=== PATIENT | female | born 1950 | race Caucasian/White ===

== ENCOUNTER 2024-04-08 10:52 | Outpatient (AMB) | payer MEDICARE, SELFPAY ==
--- NOTE | 2024-04-08 11:08 | MHC.OFFVIS ---
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 The patient describes her pain as sharp in nature. She did undergo left knee arthroscopic surgery by Dr. Farris in the past. She got fairly good relief from that surgery initially. Her pain has gotten worse over the last 6 months in spite of continued non operative treatments. She has failed the last 3 months of conservative treatment which have included a home exercise program. Topical creams, Tylenol and anti-inflammatory medicines. She has had cortisone injections in the past which gave her no relief. She wishes to hold off on further surgery if at all possible. At this point her left knee pain is interfering with her activities of daily living and her ability to sleep well through the night. Allergies No Known Allergies Allergy (Verified 04/08/24 11:11) Medication List - Last Reconciled 04/08/24 by Leon Preston MD alprazolam 0.5 mg PO BID PRN apixaban (Eliquis) 5 mg PO BID atorvastatin 20 mg PO DAILY bupropion HCl 75 mg PO QAM cyclobenzaprine 10 mg PO DAILY PRN fluoxetine 60 mg PO QAM fluticasone propionate 50 mcg/actuation sprays intranasal lisinopril 5 mg PO DAILY meclizine 25 mg PO TID PRN metoprolol succinate ER 25 mg PO DAILY [facility] Surgical History (Updated 04/08/24 @ 11:12 by MARKUS Serrano) Hx of left knee surgery Physical Exam Vital Signs: BMI result Body Mass Index 26.3 Const Other: Well-nourished well-developed very friendly female awake alert and oriented x3 in no acute distress Extrem Other: Bilateral lower extremity examination shows good capillary refill, no skin lesions noted, normal sensation light touch Left knee examination shows a minimal effusion, palpable crepitus with range of motion, pain with range of motion, range of motion from -3 degrees to 115 degrees, negative Criselda's test, no instability Results Reviewed Results Reviewed: Standing full weight-bearing x-rays of the patient's left knee taken elsewhere show moderate diffuse joint space narrowing, subchondral sclerosis, no acute bony abnormalities MRI of the patient's left knee taken on 03/11/2024 shows moderate diffuse degenerative changes, no evidence of meniscus tearing, no acute bony abnormalities Assessment & Plan Assessment & Plan (1) Osteoarthritis of left knee: Code(s): M17.12 - Unilateral primary osteoarthritis, left knee Category: Medical Plan Ms. Artis presents with left knee pain due to osteoarthritis. I had a lengthy discussion with the patient regarding the treatment options. She wishes hold off on further surgery for as long as possible. I agree with this plan. I will see whether or not the patient's insurance company will cover a viscosupplementation injection. I will see her back once the injection is available. Feel free to call me at any time should questions regarding her orthopedic management arise. I spent 20 minutes in reviewing the patient's records and imaging studies, seeing the patient and documenting in the medical record. Coding Level of Care Code New Pt Level 3 (50608) Complex EM visit Add On G2211 Diagnoses Osteoarthritis of left knee M17.12
[2024-04-08 11:10] VITALS: BMI 26.3
== END 2024-04-08 11:37 | disposition home or self-care (01) ==
LOC: HO.HOS 10:53
PROVIDERS: PCP Internal Medicine; Visit Provider Orthopaedic Surgery
DX: M17.12 Unilateral primary osteoarthritis, left knee (principal)
CPT/HCPCS: 99203; G2211

== ENCOUNTER → 2024-04-08 10:52 | Outpatient (BNVA) | payer MEDICARE, SELFPAY | PROVIDERS: PCP Internal Medicine; Visit Provider Orthopaedic Surgery | DX: M17.12 Unilateral primary osteoarthritis, left knee (principal) | CPT/HCPCS: 99202 ==

== ENCOUNTER 2024-04-28 11:10 | Outpatient (AMB) | payer MEDICARE, SELFPAY ==
[2024-04-28 11:45] VITALS: BMI 26.3
--- NOTE | 2024-04-28 11:45 | MHC.OFFVIS ---
Vital Signs 04/28/24 11:45 Height 5 ft 8 in Weight 173 lb BMI 26.3 Intake Visit Reasons: Inj- Left Durolane Injection Intake Note: Magdalena is a 73 year old female who presents with complaints of progressively worsening left knee pain. The patient describes her pain as sharp in nature. She did undergo left knee arthroscopic surgery by Dr. Farris in the past. She got fairly good relief from that surgery initially. Her pain has gotten worse over the last 6 months in spite of continued non operative treatments. She has failed the last 3 months of conservative treatment which have included a home exercise program. Topical creams, Tylenol and anti-inflammatory medicines. She has had cortisone injections in the past which gave her no relief. She wishes to hold off on further surgery if at all possible. At this point her left knee pain is interfering with her activities of daily living and her ability to sleep well through the night. Allergies No Known Allergies Allergy (Verified 04/28/24 11:45) Medication List - Last Reconciled 04/28/24 by Leon Preston MD alprazolam 0.5 mg PO BID PRN apixaban (Eliquis) 5 mg PO BID atorvastatin 20 mg PO DAILY bupropion HCl 75 mg PO QAM cyclobenzaprine 10 mg PO DAILY PRN fluoxetine 60 mg PO QAM fluticasone propionate 50 mcg/actuation sprays intranasal lisinopril 5 mg PO DAILY meclizine 25 mg PO TID PRN metoprolol succinate ER 25 mg PO DAILY PFSH Surgical History Hx of left knee surgery Social History Alcohol intake: never Patient Tobacco Use Status: Never used Tobacco Current occupational status: employed and retired Physical Exam Vital Signs: BMI result Body Mass Index 26.3 Const Other: Well-nourished well-developed very friendly female awake alert and oriented x3 in no acute distress Extrem Other: Bilateral lower extremity examination shows good capillary refill, no skin lesions noted, normal sensation light touch Left knee examination shows a minimal effusion, palpable crepitus with range of motion, pain with range of motion, range of motion from -3 degrees to 115 degrees, no instability Office Procedures AMB Joint Injection/Aspiration Joint Injection/Aspiration Primary Site: left knee Prep: site was prepped using aseptic technique Injected: 60 mg of (Durolane viscosupplementation) and 1% plain lidocaine Procedure: The patient tolerated the procedure well Coding - Large joint Procedure code (CPT) selection complete Results Reviewed Results Reviewed: X-rays of the patient's left knee taken previously show joint space narrowing, subchondral sclerosis, no acute bony abnormalities Assessment & Plan Assessment & Plan (1) Osteoarthritis of left knee: Code(s): M17.12 - Unilateral primary osteoarthritis, left knee Category: Medical Plan Ms. Artis presents with left knee pain due to degenerative joint disease. I had a lengthy discussion with the patient regarding the treatment options. The risks and benefits of a left knee Durolane viscosupplementation injection were discussed at length with the patient. The patient wished to proceed. She tolerated the injection well. She will continue with her home exercise program. She will contact me prior to her follow-up appointment in 3 months should any questions or concerns arise. Feel free to call me at any time should questions regarding her orthopedic management arise. I spent 20 minutes in reviewing the patient's records and imaging studies, seeing the patient and documenting in the medical record. Orders: Orders AMB Joint Injection/Aspiration Today M17.12 - Unilateral primary osteoarthritis, left knee Coding Level of Care Code Est Pt Level 3 (61499) Complex EM visit Add On G2211 Diagnoses Osteoarthritis of left knee M17.12 CPT Codes Coding - 71341 Large joint: 10017 - Large joint ([id number])
== END 2024-04-28 12:18 | disposition home or self-care (01) ==
PROVIDERS: PCP Internal Medicine; Visit Provider Orthopaedic Surgery
DX: M17.12 Unilateral primary osteoarthritis, left knee (principal)
CPT/HCPCS: 20610; 99213

== ENCOUNTER → 2024-04-28 11:10 | Outpatient (BNVA) | payer MEDICARE, SELFPAY | PROVIDERS: PCP Internal Medicine; Visit Provider Orthopaedic Surgery | DX: M17.12 Unilateral primary osteoarthritis, left knee (principal) | CPT/HCPCS: 20610; 99212; J2003; J7318 ==

== ENCOUNTER 2024-07-30 09:34 | Outpatient (AMB) | payer MEDICARE, SELFPAY ==
--- NOTE | 2024-07-30 09:52 | A.OFFVIS_ITS ---
Intake Visit Reasons: Left knee pain Intake Note: Magdalena is a 74 year old female who presents with complaints of left knee pain. She describes her pain as sharp in nature. She has had cortisone injections in the past which gave her minimal relief. She has also had Durolane viscosupplementation injections which gave her good relief. She wishes to hold off on surgery if at all possible. She has done physical therapy exercises which aggravated her pain. She has also tried Tylenol which gives her minimal relief. She is not able to take anti-inflammatory medicines because she is on Eliquis. Allergies No Known Allergies Allergy (Verified 07/30/24 09:53) Medication List - Last Reconciled 07/31/24 by Leon Preston MD alprazolam 0.5 mg PO BID PRN apixaban (Eliquis) 5 mg PO BID atorvastatin 20 mg PO DAILY bupropion HCl 75 mg PO QAM cyclobenzaprine 10 mg PO DAILY PRN fluoxetine 60 mg PO QAM fluticasone propionate 50 mcg/actuation sprays intranasal lisinopril 5 mg PO DAILY meclizine 25 mg PO TID PRN metoprolol succinate ER 25 mg PO DAILY [facility] Surgical History Hx of left knee surgery Social History Alcohol intake: never Patient Tobacco Use Status: Never used Tobacco Current occupational status: employed and retired Physical Exam Const Other: Well-nourished well-developed very friendly female awake alert and oriented x3 in no acute distress Extrem Other: Bilateral lower extremity examination shows good capillary refill, no skin lesions noted, normal sensation light touch Left knee examination shows a minimal effusion, palpable crepitus with range of motion, pain with range of motion, range of motion from -3 degrees to 115 degrees, no instability Results Reviewed Results Reviewed: X-rays of the patient's left knee taken previously show joint space narrowing, subchondral sclerosis, no acute bony abnormalities Assessment & Plan Assessment & Plan (1) Left knee pain: Code(s): M25.562 - Pain in left knee (2) Osteoarthritis of left knee: Code(s): M17.12 - Unilateral primary osteoarthritis, left knee Category: Medical Plan Ms. Artis presents with progressively worsening left knee pain due to osteoarthritis. I had a lengthy discussion with the patient regarding the treatment options. She wishes to hold off on surgery if at all possible. I agree with this plan. She has not gotten good relief from cortisone injections in the past. She has gotten good relief from viscosupplementation injections. Thus, I will see if her insurance company will cover a another Durolane viscosupplementation injection. I will see her back once the injection is avail able. The patient will follow-up as instructed. Feel free to call me at any time should questions regarding her orthopedic management arise. I spent 20 minutes in reviewing the patient's records and imaging studies, seeing the patient and documenting in the medical record. Coding Level of Care Code Est Pt Level 3 (29540) Complex EM visit Add On G2211 Diagnoses Left knee pain M25.562 Osteoarthritis of left knee M17.12
--- OUTSIDE RECORDS SUMMARY | 2024-07-30 10:56 | XMS_ITS ---
Author Organization 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 Generated for aCrmen gardner/Seven/eTransmitting on:?07/30/2024 10:55 AM EST
--- OUTSIDE RECORDS SUMMARY | 2024-07-30 10:56 | XMS_ITS | Clinical Summary ---
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 Name Role Phone Facundo Hua MD Primary Care Provider Allergies No known active allergies Social History Tobacco Use Types Packs/Day Years Used Date Smoking Tobacco: Never Assessed Sex and Gender Information Value Date Recorded Sex Assigned at Not on file Gender Identity Not on file Sexual Orientation Not on file Last Filed Vital Signs Vital Sign Reading Time Taken Comments Blood Pressure 133/77 08/05/2021 12:35 PM EST Pulse 63 08/05/2021 12:35 PM EST Temperature 35.8 ??C (96.4 ??F) 08/05/2021 12:[address] Respiratory Rate 18 08/05/2021 12:35 PM EST Oxygen Saturation 98% 08/05/2021 12:35 PM EST Inhaled Oxygen Concentration - - Weight - - Height - - Body Mass Index - - Plan of Treatment Health Maintenance Due Date Last Done Comments Hepatitis C Virus Screening 1950 DTaP/Tdap/Td Vaccines (1 - Tdap) 1967 Mammogram 1988 Colonoscopy 1993 Pneumococcal Vaccines 50+ (1 of 1 - PCV) 1998 Zoster (Shingles) Vaccine (1 of 2) 1998 DXA Bone Density (Females,Ages 65 and older) 2013 RSV Vaccine 60 years and older and Patients (1 - 1-dose 75+ series) 2023 Influenza Vaccine 01/03/2024 03/08/2021, 03/05/2018, 03/29/2017 COVID-19 Vaccine ( - 2023-2 5 season) 2024 Hepatitis B Vaccines Aged Out No long er eligible based on patient's age to complete this topic Care Teams [employer] Weapons Sergeant Relationship Specialty Start Date End Date Facundo Hua MD [address] [place] [address] [place] [address] PCP - General Internal Medicine 07/18/21
--- OUTSIDE RECORDS SUMMARY | 2024-07-30 10:56 | XMS_ITS | Patient Health Record ---
Author Organization [facility] Address [address] [place] [address] Care Team Providers Care Yard Demurrage Clerk Name Role Phone Sarah BAKER, Jordyn Grigsby Primary Care Provider Unav ailable Ninfa Guzman Unavailable [phone] Reason For Referral No Information Plan Of Treatment No Information Insurance Providers Payer Name Payer Address Payer Phone Subscriber Number Group Number Insured Name Patient Relationship to Insured Coverage Start Date Coverage End Date [facility] 65 Medicare Preferred [address] [place] [address] [id number] Magdalena Artis Self - patient is the insured
--- OUTSIDE RECORDS SUMMARY | 2024-07-30 10:56 | XMS_ITS | Clinical Summary ---
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 Active cyanocobalamin (VITAMIN B-12) 250 mcg tablet Take by mouth 1 (one) time each day. Active ALPRAZolam (XANAX) 0.5 mg tablet Take 1 tablet (0.5 mg total) by mouth. Active zolpidem (AMBIEN) 10 mg tablet Take by mouth. Activ e magnesium gluconate (Mag-G) 27 mg magnesium (500 mg) tablet Take by mouth 1 (one) time each day. Active buPROPion (WELLBUTRIN) 75 mg tablet Take 1 tablet (75 mg total) by mouth 1 (one) time each day in the morning. 03/15/20 23 Active latanoprost (XALATAN) 0.005 % ophthalmic solution INSTILL 1 DROP INTO BOTH EYES NIGHTLY. REFRIGERATE UNTIL OPENED. DISCARD BOTTLE 6 WEEKS AFTER OPENING) 01/30/20 23 Active EPINEPHrine (EpiPen 2-Felix) 0.3 mg/0.3 mL injection Inject 0.3 mL (0.3 mg total) into the thigh. 12/07/19 24 Active FLUoxetine (PROzac) 20 mg capsule TAKE TWO CAPSULES BY MOUTH EVERY MORNING AND TAKE ONE CAPSULE BY MOUTH DAILY AT BEDTIME 12/04/19 24 Active apixaban (Eliquis) 5 mg tablet Take 1 tablet (5 mg total) by mouth 2 (two) times a day. 07/25/19 24 Active atorvastatin (LIPITOR) 10 mg tablet Take 1 tablet (10 mg total) by mouth 1 (one) time each day. 11/14/19 24 Active albuterol HFA (PROAIR HFA ; PROVENTIL HFA ; VENTOLIN HFA) 90 mcg/actuation inhaler Inhale 2 puffs by mouth every 6 (six) hours if needed for wheezing. Active fluticasone propionate (FLONASE) 50 mcg/actuation nasal spray Administer 1 spray into each nostril 1 (one) time each day. Shake gently. Before first use, prime pump. After use, clean tip and replace cap. Active metoprolol succinate (TOPROL-XL) 25 mg 24 hr tablet Take 1 tablet (25 mg total) by mouth 1 (one) time each day. Do not crush or chew. Active albuterol HFA (PROAIR HFA ; PROVENTIL HFA ; VENTOLIN HFA) 90 mcg/actuation inhalerIndicati ons:Chronic obstructive pulmonary disease, unspecified COPD type (CMS/HCC) Inhale 2 puffs by mouth every 6 (six) hours if needed for wheezing or shortness of breath. 1 each 11 05/04/20 24 025 Active cyclobenzaprine (FLEXERIL) 10 mg tabletIndicatio ns:Low back pain, unspecified back pain laterality, unspecified chronicity, unspecified whether sciatica present TAKE ONE TABLET BY MOUTH EVERY DAY NEEDED FOR MUSCLE SPASMS 60 tablet 1 05/13/20 24 Active lisinopriL (PRINIVIL,ZESTR IL) 5 mg tablet TAKE ONE TABLET BY MOUTH EVERY DAY 90 tablet 07/14/19 25 Active lisinopriL (PRINIVIL,ZESTR IL) 5 mg tablet TAKE ONE TABLET BY MOUTH EVERY DAY 90 tablet 04/09/20 24 025 Discontinued Active Problems Problem Noted Date Diagnosed Date Pericardial effusion 02/29/2024 Dizziness 04/17/2023 Overview (02/29/2024): Last Assessment & Plan: The patient has been reporting dizziness with position changes which has been going on for quite some time. She has not had any episodes of syncope. Orthostatics today in the office appeared to be positive. Given that the patient does not have any history of coronary artery disease, I will discontinue her isosorbide mononitrate 30 mg orally daily. This was started initially due to she was reporting episodes of chest discomfort and started on medical therapy prior to her cardiac testing. The patient will continue on her reduced dose of lisinopril at 5 mg orally daily. I have also instructed that she takes metoprolol 25 mg at night to see if this improves her symptoms. She recently completed a CBC which showed stable blood counts as well as stable electrolytes. She will continue to monitor her blood pressures, maintain adequate hydration, try compression stockings and notify me if her blood pressures remain elevated greater than 145/90. She prefers to communicate via the portal to update in regards to her symptoms. UTI due to Klebsiella species 03/26/2023 Overview (02/29/2024): Not sexually active, referred patient to urology March 2023 Prediabetes 12/01/2021 Chronic kidney disease (CKD) 12/01/2021 Fatigue 10/14/2021 Overview (02/29/2024): Last Assessment & Plan: Patient does complain of some fatigue today. Has a STOP-BANG score of 1 (for fatigue) is a low risk for DEBORAH. I did recommend we obtain some labs to evaluate her thyroid, look for anemia, evaluate her electrolytes. Given lab slips today. Recommended she call her PCP as well regarding her fatigue. Atrial flutter, paroxysmal 07/25/2021 Overview (02/29/2024): Last Assessment & Plan: Patient has a history of paroxysmal atrial flutter. She continues on rate control therapy with beta-bette. Her heart rate is well controlled today. She continues on anticoagulation therapy with Eliquis. She has a [id number] score of 3. She denies any excessive bruising or bleeding. She reports rare episodes of palpitations which lasts for a second at a time. We reviewed the possible triggers of palpitations including caffeine consumption, alcohol consumption, cigarette smoking, inadequate sleeping patterns, and stress. At this point, the patient will attempt to avoid the usual triggers. The patient will notify me if her symptoms increase in frequency or duration. Continue current therapies. Chest pain 07/07/2021 Overview (02/29/2024): Last Assessment & Plan: Patient with history of atypical chest discomfort. Her stress echocardiogram did not show any evidence of exercise-induced ischemia. Cardiac CT was obtained to rule out any significant obstructive coronary artery disease. She underwent cardiac CT on August 05, 2021 that showed a calcium score of 0 with no hemodynamically significant coronary artery disease. I discussed the results with him and advised that this indicates there is a low risk of a a heart attack in the future; however, this does not preclude her from having a cardiac event in the future. At this time, she will continue on her current medications. I explained this is not a single predictor of overall risk of heart disease. She will continue on her current medication regimen. I have reviewed with the patient the importance of a heart healthy lifestyle which includes eating a low-fat and low-salt diet, getting regular exercise, maintaining a healthy weight, not smoking, and following up with routine medical care. Cervical spondylosis 06/10/2021 Overview (02/29/2024): Last Assessment & Plan: Chandra is here for her 1 year follow-up after C6-7 ACDF with plating on 06/10/2020. She has some residual achiness in her neck upon awakening in the mornings, similar to her achy shoulders. This is much better than her preoperative neck pain and she is pleased from that standpoint. The neck pain gets better with movement and gentle stretching. On exam, her incision is well-healed, cervical rotation is 45 degrees bilaterally, strength is 5 out of 5 to conversational testing, gait is steady there are no myelopathic findings. Review of the AP/lateral and flexion/extension x-rays from today show the graft plate and screws to all be in good position. There is a small amount of subsidence but the graft appears to be fused anteriorly. There is no instability at any level. We discussed that she may progress to full fusion over the next 6 months to a year but this would not limit her activities. I offered a referral to physical therapy to improve her mobility and give her a home exercise program but she declined and will do this on her own. She is welcome to follow-up with us if there are any concerns in the future. Syncope 05/06/2021 Overview (02/29/2024): Last Assessment & Plan: The patient had an episode of syncope several months ago. She states that she suddenly collapsed while having a conversation with one of her neighbors. The patient did not seek any medical attention at that time. Echocardiogram done in February showed an LVEF of 50 to 55%, normal RV size and function, and trace MR. Holter monitor done in January did not show any arrhythmias but the patient did not have any significant symptoms while wearing the monitor. As such, will order a 30-day ambulatory echocardiographic monitor to rule out any underlying arrhythmias as a cause of her symptoms. Dyspnea 05/06/2021 Overview (02/29/2024): Last Assessment & Plan: The patient continues to endorse experiencing exertional shortness of breath. Will order a pulmunary function test to rule out any underlying pulmonary disease as the cause of her symptoms. Abnormal echocardiogram 05/02/2021 Hyperlipidemia 08/11/2016 Overview (02/29/2024): Last Assessment & Plan: Patient has a history of hyperlipidemia. She will continue her current dose of atorvastatin as prescribed. Patient was last fasting lipid panel completed October 2022 which showed adequate cholesterol control. I have reviewed with the patient the importance of a heart healthy lifestyle which includes eating a low-fat low-salt diet, getting regular exercise, maintaining a healthy weight, not smoking, and following up with routine medical care. RLS (restless legs syndrome) 12/15/2015 Anxiety 11/09/2015 Hip pain 04/27/2015 Overview (02/29/2024): Follows with [facility], had X ray, injection Depression 01/06/2010 Diverticulitis of colon without hemorrhage 08/19 Overview (02/29/2024): Incidental finding at colonoscopy 08/19/2009. Benign essential hypertension 09/29/2005 Overview (02/29/2024): Last Assessment & Plan: Patient's blood pressure is well controlled today. I will discontinue isosorbide mononitrate as outlined below. She will continue on lisinopril and metoprolol as prescribed. She will continue to monitor her blood pressures at home. Encounters Date Type Department Care Team Description 07/29/2024 Telephone [facility] [address] [place] [address] Facundo Hua MD 06/09/2024 9:30 AM EST Office Visit Adult Medicine [facility] [address] [place] [address] Jordyn Smith MD Vaginal discharge (Primary Dx); Dyspnea, unspecified type; History of pneumonia 05/07/2024 10:00 AM EST Ancillary Procedure [facility] [address] [place] [address] Pericardial effusion from Last 3 Months Immunizations Name Administration Dates Next Due Influenza trivalent, 0.5mL ( Fluzone High-dose) 65yo and older 03/18/2022,03/08/2021,03/24/2020,03/05 Influenza trivalent, with pr eservative (Fluzone; Afluria) 6mo and older 02/07/2023,03/29/2017 Pneumococcal conjugate 13 va lent (Prevnar 13, PCV13) 2mo and older 10/30/2017 Pneumococcal polysaccharide 23 valent (Pneumovax 23) 2yo and older 10/17/2022 RSV, bivalent, protein subun it RSVpreF, 0.5mL, Preservative Free (Arexvy) 60yo and older 02/07/2023 Td Tetanus diptheria (Tdvax) 7yo and older 06/10/2019 Tdap Tetanus diptheria acell ular pertussis (Boostrix; Adacel) 7yo and older 06/27/2007 Surgical History Surgery Date Site/Laterality Comments COLONOSCOPY 08/19/2009 PROCEDURE: NE COLONOSCOPY FLX DX W/COLLJ SPEC WHEN PFRMD; COMMENT: diverticulosis ESOPHAGOGASTRODUODENOSCOPY 06/04/2013 PROCEDURE: NE ESOPHAGOGASTRODUODENOSCOPY TRANSORAL DIAGNOSTIC; COMMENT: normal COLONOSCOPY 05/17/2022 PROCEDURE: HISTORICAL COLONOSCOPY; COMMENT: tubular adenoma and diverticulosis Medical History Medical History Date Comments Tobacco use disorder 11/26/2006 DX:Tobacco use disorder; COMMENT: quit 2006 Unspecified essential hypertension DX:Unspecified essential hypertension Diverticulosis of colon (wit hout mention of hemorrhage) 08/19/2009 DX:Diverticulosis of colon ( without mention of hemorrhage) Depression 01/06/2010 DX:Depression Hip pain 04/27/2015 DX:Hip pain; COM MENT: Follows with [facility], had X ray, injection Anxiety DX:Anxiety History of dysplastic nevus 08/15/2012 DX:H istory of dysplastic nevus; COMMENT: Dysplastic nevus 08/12 back (mild atypia) Cervical spondylosis 06/10/2021 DX:Cervical spondylosis Family History Medical History Relation Name Comments Hypertension Brother 1 Other: Hodgkin's lymphoma Brother 2 Heart attack Father at age 72, HTN, stroke, basal cell ca Hypertension Mother ESRD Hypertension Sister Breast cancer Neg Hx Relation Name Status Comments Brother 1 Brother 2 Father Mother Sister Social History Tobacco Use Types Packs/Day Years Used Date Smoking Tobacco: Former Cigarettes 0.5 30.3 0 10/30/1976 - 03/04/2007 Smokeless Tobacco: Former Tobacco Cessation:Counseling Given: Not Answered Alcohol Use Standard Drinks/Week Comments Yes 0 (1 standard drink = 0.6 oz pur e alcohol) Comments Unknown Sex and Gender Information Value Date Recorded Sex Assigned at Not on file Legal Sex Female 8:44 PM EST Gender Identity Not on file Sexual Orientation Not on file Obstetrics History Last Filed Vital Signs Vital Sign Reading Time Taken Comments Blood Pressure 131/82 06/09/2024 9:15 AM EST Pulse 72 06/09/2024 9:15 AM EST Temperature 36 ??C (96.8 ??F) 06/09/2024 9:15 AM EST Respiratory Rate 16 06/09/2024 9:15 AM EST Oxygen Saturation 99% 04/16/2024 4:11 PM EST Inhaled Oxygen Concentration - - Weight 81.2 kg (179 lb) 06/09/2024 9:15 AM EST Height 172.7 cm (5' 8 ) 06/09/2024 9:15 AM EST Body Mass Index 27.22 06/09/2024 9:15 AM EST Plan of Treatment Upcoming Encounters Date Type Department Care Team (Late st Contact Info) Description 08/11/2024 8:20 AM EDT Office Visit [facility] [address] [place] [address] Facundo Hua MD [address] [place] [address] [address] [place] [address] 10/21/2024 11:45 AM EDT Office Visit Pulmonolgy - [place] [address] [facility] [address] [place] [address] Crystal Steiner MD [address] [facility] [address] [place] [address] 02/11/2025 8:45 AM EDT Office Visit Adult Medicine [facility] [address] [place] [address] Jordyn Smith MD [address] [place] [address] Health Maintenance Due Date Last Done Comments Zoster Vaccines (1 of 2) 1998 Hepatitis C Screening 05/13/2022 Social Influencers of Health Screening 05/13/2022 Medicare Annual Wellness Visit 01/16/2023 01/16/2022 Depression Screening 04/04/2024 04/04/2023 Falls Risk Assessment 04/04/2024 04/04/2023 Hypertension/CHF/CAD Annual BMP Blood Test 07/20/2024 07/20/2023 Cholesterol Screening (Lipid Panel) 07/20/2028 07/20/2023 DTaP,Tdap,and Td Vaccines (3 - Td or Tdap) 06/10/2029 06/10/2019, 06/27/2007 Osteoporosis Screening (Bone Density Screening) 03/01/2033 03/01/2023 Pneumococcal Vaccine: 50+ Years Completed 10/17/2022, 10/30/2017 Breast Cancer Screening Discontinued 12/11/2022, 12/22 RSV Immunization Patients 60+ Years Old Completed 02/07/2023 Influenza Vaccine Completed 02/22/2024, , 03/18/2022, Additional history exists COVID-19 Vaccine Completed 03/10/2024, 07/2022, 12/29/2021, Additional history exists HIB Vaccines Aged Out No longer eligi ble based on patient's age to complete this topic HPV Vaccines Aged Out No longer eligi ble based on patient's age to complete this topic Hepatitis A Vaccines Aged Out No long er eligible based on patient's age to complete this topic Hepatitis B Vaccines Aged Out No long er eligible based on patient's age to complete this topic IPV Vaccines Aged Out No longer eligi ble based on patient's age to complete this topic MMR Vaccines Aged Out No longer eligi ble based on patient's age to complete this topic Meningococcal ACWY Vaccine Aged Out N o longer eligible based on patient's age to complete this topic Meningococcal B Vacine Aged Out No lo nger eligible based on patient's age to complete this topic RSV Immunization Patients Under 20 months Aged Out No longer eligible based on patient's age to complete this topic Varicella Vaccines Aged Out No longer eligible based on patient's age to complete this topic Procedures Procedure Name Priority Date/Time Associated Diagnosis Comments TRANSTHORACIC ECHOCARDIOGRAM (TTE) COMPLETE Routine 05/07/2024 10:43 AM EST Pericardial effusion ANNUAL BMP BLOOD TEST Routine 07/20/2023 LIPID PANEL Routine 07/20/2023 DEPRESSION SCREENING Routine 04/04/2023 FALLS RISK ASSESSMENT Routine 04/04/2023 DXA BONE DENSITY STUDY 1+ SITS AXIAL SKEL Routine 03/01/2023 11:33 AM EDT Other specified personal risk factors, not elsewhere classified SCREENING MAMMOGRAPHY BI 2-VIEW BREAST INC CAD Routine 12/11/2022 9:26 AM EDT Encounter for screening mammogram for malignant neoplasm of breast from Last 3 Months or Most Recently Relevant to Health Maintenance Results * (ABNORMAL) TRANSTHORACIC ECHOCARDIOGRAM (TTE) COMPLETE (05/07/2024 10:43 AM EST) Left Atrium Minor Bledsoe 5.9 cm CV PACS Left Atrium Major Bledsoe 5.9 cm CV PACS LA Area Sys (A2C) 24 cm2 CV PACS LA Area Sys (A4C) 18 cm2 CV PACS LA Volume (BP) 58 mL CV PACS RA Area 19.6 cm2 CV PACS RA 2D Volume 53 mL CV PACS AV Regurgitation PHT 704 ms CV PACS AR Max Velocity 4.8 m/s CV PACS Aortic Sinus Valsalva 4.0 cm CV PACS Ascending Aorta 3.8 cm CV PACS IVSD 0.9 0.6 - 0.9 cm CV PACS LVIDD 4.4 3.8 - 5.2 cm CV PACS LVIDS 3.3 2.2 - 3.5 cm CV PACS LVOT Diameter 2.0 cm CV PACS LVOT Mean Tirso 0.6 m/s CV PACS LVOT Mean Grad 1 mmHg CV PACS LVOT Peak VTI 19.3 cm CV PACS LVOT Peak Tirso 0.8 m/s CV PACS LVOT Peak Gradient 3 mmHg CV PACS LVPWD 0.9 0.6 - 0.9 cm CV PACS MV E' Tissue Velocity Lateral 5 cm/s CV PACS MV E' Tissue Velocity Septal 4 cm/s CV PACS LVOT Area 3.1 cm2 CV PACS LVOT Stroke Volume 60 mL CV PACS E Wave Deceleration Time 257(A) 119 - 242 ms CV PACS MV Peak A Tirso 1.00 m/s CV PACS MV Peak E Tirso 0.70 m/s CV PACS PV Acceleration Time 141 ms CV PACS RV Diastolic Basal Dimension 4.0 2.5 - 4.1 cm CV PACS RV S' 10 cm/s CV PACS TAPSE 22 mm CV PACS TR Peak Velocity 2.40 m/s CV PACS TR Peak Gradient 24 mmHg CV PACS E/E' Ratio Septal 18 CV PACS E/E' Ratio Averaged 16 CV PACS Relative Wall Thickness ratio 0.43(A) 0.22 - 0.42 CV PACS FS 25 % CV PACS LV Mass 2D 128 66 - 150 g CV PACS LVOT flow 188 mL/s CV PACS E/A Ratio 0.7(A) 0.8 - 2.0 CV PACS E/E' Ratio Lateral 14 CV PACS BSA 1.97 m2 CV PACS LA Volume Index (BP) 29 mL/m2 CV PACS LVIDD Index 2.26 cm/m2 CV PACS LVIDS Index 1.69 cm/m2 CV PACS LV Mass Index 2D 66 44 - 88 g/m2 CV PACS LVOT Stroke Index 0 mL/m2 CV PACS RA 2D Volume Index 27 15 - 27 mL/m2 CV PACS Ascending Aorta Index 1.95 cm/m2 CV PACS RV Free Wall Peak S' 10 cm/s CV PACS RA Major Bledsoe 5.8 cm CV PACS RA Major Bledsoe Index 3.0(A) 2.2 - 2.8 cm/m2 CV PACS MV PHT 75 ms CV PACS Right Ventricular Peak Systolic Pressure 26 mmHg CV PACS Est. RA Pressure 3 mmHg CV PACS Anatomical Region Laterality Modality Ultrasound Narrative 05/12/2024 11:56 AM EST ?Left ventricle cavity size is normal. ??There is normal left ventricular wall thickness with sigmoid septum-a benign variant. ??There is normal left ventricular regional wall motion. ??Left ventricular systolic function is in the normal range with an ejection fraction of 55-60%. ?Right ventricle cavity is normal. Right ventricular systolic function is normal. ?There is no hemodynamically significant valve disease. ??Minor valvular abnormalities as below. ?The aortic root is mildly dilated for age and body surface area. ??The ascending aorta is mildly dilated for age and body surface area. ?There is normal pulmonary artery systolic pressure. ?There is a trivial pericardial effusion of no hemodynamic consequence. Normal biventricular systolic function without significant valve disease. ?? Minimally dilated aortic root and ascending aorta for age and body surface area. ??Only trivial pericardial effusion is noted. Left Ventricle Left ventricle cavity size is normal. Wall thickness is normal. Sigmoid septum is noted? a benign variant. Systolic function is normal with an ejection fraction of 55- 60%. There are no regional LV wall motion abnormalities. Diastolic function is indeterminate. Right Ventricle Right ventricle cavity appears normal. Systolic function is normal. Left Atrium Left atrium cavity size is normal. Right Atrium Right atrium cavity is normal. IVC/SVC Inferior vena cava structure is normal. RA pressures is estimated to be 3 mmHg (IVC diameter <21 mm and decreases >50% during inspiration). Mitral Valve Mitral valve structure is normal. There is mild annular calcification. There is trace to mild regurgitation. There is no evidence of mitral valve stenosis. Tricuspid Valve Tricuspid valve structure is normal. There is mild regurgitation. There is no evidence of tricuspid valve stenosis. The right ventricular systolic pressure is normal. The RVSP is estimated at 26 mmHg. Aortic Valve The aortic valve is trileaflet. There is mild regurgitation with a centrally directed jet. There is no evidence of aortic valve stenosis. Pulmonic Valve Visualized portions of the pulmonic valve appear normal. There is trace pulmonic valve regurgitation. There is no evidence of pulmonic valve stenosis. Ascending Aorta The aortic root is mildly dilated (4 cm). The ascending aorta is dilated (3.8 cm). Pericardium Pericardium appears normal. There is a trivial pericardial effusion. Study Details Overall the study quality was adequate. Result [facility] Andie Orozco NP CV ECHO PROCEDURES Final Re sult * Annual BMP Blood Test (07/20/2023) [facility] Annual BMP Blood Test abstracted Result [facility] HEALTH MAINTENANCE Final Result * Lipid panel (07/20/2023) [facility] LDL/HDL Ratio 2 0 - 4 Triglycerides 98 0 - 150 mg/dL Cholesterol 185 0 - 200 mg/dL HDL 77 >=40 mg/dL LDL Cholesterol 89 0 - 100 mg/dL Blood Venous blood specimen / Unknown Result [facility] LAB BLOOD ORDERABLES Alisa l Result * Falls Risk Assessment (04/04/2023) [facility] Falls Risk Assessment abstracted Result [facility] HEALTH MAINTENANCE Final Result * Depression Screening (04/04/2023) [facility] Depression Screening abstracted Result [facility] HEALTH MAINTENANCE Final Result * DXA BONE DENSITY STUDY 1+ SITS AXIAL SKEL (03/01/2023 11:33 AM EDT) Anatomical Region Laterality Modality Bone Densitometr y 11/08/2021 11:1 8 AM EDT Narrative 03/01/2023 2:50 PM EDT BONE DENSITY ? Lumbar Spine T-score is +1.0 ?? (SD relative to 20-29 y/o adult) Z-score is +3.3 ??(SD relative to age matched peers) This is normal by criteria defined by the WHO. Left Hip T-score is +0.3 Z-score is +2.3 This is normal by criteria defined by the WHO. Comparison exam(s): significant increase in bone density of ??hip and lumbar spine when compared to most recent bone density examination ?? Confidence level is +/-95%. Impression: Based on the World Health Organization criteria, Magdalena Artis should be classified as having normal bone density. The [facility] Department of Internal Medicine recommends using National Osteoporosis Foundation (NOF) guidelines in treatment decisions related to osteoporosis. NOF guidelines suggest considering treatment for postmenopausal women and men aged 50 or older presenting with the following: History of hip or vertebral fracture. T-score less than or equal to -2.5 (DXA) at the femoral neck, total hip, or spine, after appropriate evaluation to exclude secondary causes. Low bone mass (T-score between -1.0 and -2.5 at the femoral neck or spine) AND a 10-year probability of a hip fracture greater than or equal to 3% OR a 10-year probability of a major osteoporosis-related fracture greater than or equal to 20% based on the [place]-adapted WHO algorithm Please note that all treatment decisions require clinical judgment and consideration of individual patient factors, including patient preferences, co-morbidities, previous drug use, risk factors not captured in the FRAX model (e.g., frailty, falls, vitamin D deficiency, increased bone turnover, interval significant decline in bone density) and possible under- or over-estimation of fracture risk by FRAX. Procedure Note Matthew Root MD - 08/02/2023 BONE DENSITY Lumbar Spine T-score is +1.0 (SD relative to 20-29 y/o adult) Z-score is +3.3 (SD relative to age matched peers) This is normal by criteria defined by the WHO. Left Hip T-score is +0.3 Z-score is +2.3 This is normal by criteria defined by the WHO. Comparison exam(s): significant increase in bone density of hip andlumbar spine when compared to most recent bone density examination Confidence level is +/-95%. Impression: Based on the World Health Organization criteria, Magdalena Artis should beclassified as having normal bone density. The [facility] Department of Internal Medicine recommendsusing National Osteoporosis Foundation (NOF) guidelines in treatmentdecisions related to osteoporosis. NOF guidelines suggest consideringtreatment for postmenopausal women and men aged 50 or older presentingwith the following: History of hip or vertebral fracture. T-score less than or equal to -2.5 (DXA) at the femoral neck, total hip,or spine, after appropriate evaluation to exclude secondary causes. Low bone mass (T-score between -1.0 and -2.5 at the femoral neck or spine)AND a 10-year probability of a hip fracture greater than or equal to 3% ORa 10-year probability of a major osteoporosis-related fracture greaterthan or equal to 20% based on the [place]-adapted WHO algorithm Please note that all treatment decisions require clinical judgment andconsideration of individual patient factors, including patientpreferences, co-morbidities, previous drug use, risk factors not capturedin the FRAX model (e.g., frailty, falls, vitamin D deficiency, increasedbone turnover, interval significant decline in bone density) and possibleunder- or over-estimation of fracture risk by FRAX. us Francois TOBIN IMG DXA PROCEDURES Final Result * SCREENING MAMMOGRAPHY BI 2-VIEW BREAST INC CAD (12/11/2022 9:26 AM EDT) Anatomical Region Laterality Modality Radiographic Fang ging 11/08/2021 10:2 4 AM EDT Narrative 12/11/2022 7:09 PM EDT This is a summary report. The complete report is available in the patient's medical record. If you cannot access the medical record, please contact the sending organization for a detailed fax or copy. Exam: Screening mammogram Findings: Digital bilateral full-field screening mammography is performed with tomosynthesis and interpreted with the aid of computer-aided detection. ??Comparison is made with 12/22/2016 and as far back as 10/29/2014. Breast parenchyma is composed of scattered fibroglandular densities. ??No new suspicious mass, architectural distortion, or suspicious calcifications. Impression: No mammographic evidence of malignancy. BI-RADS 1 - negative Procedure Note Isa Thorpe MD - 07/09/2023 This is a summary report. The complete report is available in thepatient's medical record. If you cannot access the medical record, pleasecontact the sending organization for a detailed fax or copy. Exam: Screening mammogram Findings: Digital bilateral full-field screening mammography is performedwith tomosynthesis and interpreted with the aid of computer-aideddetection. Comparison is made with 12/22/2016 and as far back as10/29/2014. Breast parenchyma is composed of scattered fibroglandular densities. Nonew suspicious mass, architectural distortion, or suspiciouscalcifications. Impression: No mammographic evidence of malignancy. BI-RADS 1 - negative Francois TOBIN IMG XR PROCEDURES Final Result from Last 3 Months or Most Recently Relevant to Health Maintenance Insurance [employer] - [place] MEDICARE ADVANTAGE Care Teams Driver Utility Worker Relationship Specialty Start Date End Date Jordyn Smith MD [address] [place] [address] [facility] - General 11/01/06
--- OUTSIDE RECORDS SUMMARY | 2024-07-30 10:56 | XMS_ITS | Encounter Summary ---
Author Organization [facility] Address [address] [place] [address] Care Team Providers Care Ceo And President Name Role Phone Jordyn Smith MD Primary Care Provider [phone] Encounter Details Date Type Department Care Team (Late st Contact Info) Description 07/29/2024 Telephone [facility] [address] [place] [id number] Facundo Hua MD [address] [place] [address] [address] [place] [address] Social History Tobacco Use Types Packs/Day Years Used Date Smoking Tobacco: Former Cigarettes 0.5 30.3 0 10/30/1976 - 03/04/2007 Smokeless Tobacco: Former Alcohol Use Standard Drinks/Week Comments Yes 0 (1 standard drink = 0.6 oz pur e alcohol) Comments Unknown Sex and Gender Information Value Date Recorded Sex Assigned at Not on file Legal Sex Female 8:44 PM EST Gender Identity Not on file Sexual Orientation Not on file documented as of this encounter Progress Notes * Maria Isabel Jones MA - 07/29/2024 10:16 AM EST I called Magdalena and advised as below, she is happy to receive the call back and will make arrangements to see a GI and looks forward in seeing us on August 11 * Facundo Hua MD - 07/29/2024 9:41 AM EST 1. The patient has had extensive cardiac testing in the past including a prior cardiac CT scan in August 2021 that was noted to be completely normal (no evidence of CAD and calcium score was 0) as well as a nuclear stress test recently in February 2024 which was also noted to be normal. 2. From your description, it seems that she is having trouble swallowing. On her episodes of chest discomfort occurring right after eating or associated to eating? If so, her symptoms may be GI in nature and in that case she will need to discuss this further with her primary care physician to determine if she needs to be seen by tilt wall supervisor 3. Will evaluate the patient in our office as scheduled on 08/11/2024. If the patient has any recurrent or worsening symptoms before then, she should go to emergency room for further evaluation. * Facundo Hua MD - 07/29/2024 9:40 AM EST 1. The patient has had extensive cardiac testing in the past including a prior cardiac CT scan in August 2021 that was noted to be completely normal (no evidence of CAD and calcium score was 0) as well as a nuclear stress test recently in February 2024 which was also noted to be normal. 2. From your description, it seems that she is having trouble swallowing. On her episodes of chest discomfort occurring right after eating or associated to eating? If so, her symptoms may be GI in nature and in that case she will need to discuss this further with her primary care physician to determine if she needs to be seen by tilt wall supervisor 2. Will evaluate the patient in our office as scheduled on 08/11/2024. If the patient has any recurrent or worsening symptoms before then, she should go to emergency room for further evaluation. * Maria Isabel Jones MA - 07/29/2024 9:19 AM EST I called Magdalena and in addtion to what's listed below I asked her a couple of questions She was last seen in our office as well as with PCP around 01/2024--she is in need of updated labs prior to her upcoming appt here which I will order for her such as chemistries if you are in agreement-- she is of course feeling well today without complaints, She is eating a well balanced diet, however she isnt hydrating as well as she should be so she will be making the effort, she is moving bowels and urinating adequately without issue, she has maintained the same energy levels, she walks 4 miles a day and fairly active throughout the day. Her average bp is 125/77 hr 70's--today while on thephone it was 122/74 hr 71 w/o alerts, she lays with 2 pillows and is able to get a good nights sleep. One thing that is new that she noticed was that when she eats she notices that its harder to swallow at times, during the episodes of the tightness in her chest she tells me it can last up to 5-10 minutes and so she lays down until it goes away, she does not experience the numbness in her left hand , neck or jaw pain . She is wanting to make sure there isn't anything she needs to do prior to coming in to her appt 08/11/24 with you or if its safe to wait until then to be seen, as mentioned above she is asymptomatic today * George Danielson - 07/29/2024 8:51 AM EST Magdalena called to schedule a appointment but has expressed to me that she has been having some issues. She has bee feeling light headed and dizzy from the last 10 days, which has been on and off and she said that it happens 2-3 times a day. She also has Shortness of breath, but not at the very moment. Plus she has chest discomfort with it feeling heavy and tight she expressed that she wasn't feeling the discomfort today so far.If we can wash test checker her a call back as soon as we can she would appreciateit. documented in this encounter Plan of Treatment Upcoming Encounters Date Type Department Care Team (Late st Contact Info) Description 08/11/2024 8:20 AM EDT Office Visit [facility] Cardiology [facility] [address] [place] [address] Facundo Hua MD [address] [place] [address] [address] [place] [address] 10/21/2024 11:45 AM EDT Office Visit Pulmonolgy - [place] [address] [facility] [address] [place] [address] Crystal Steiner MD [address] [facility] [address] [place] [address] 02/11/2025 8:45 AM EDT Office Visit Adult Medicine [facility] [place], [place] [address] [place] [address] Jordyn Smith MD [address] [place] [address] documented as of this encounter Visit Diagnoses Not on filedocumented in this encounter Care Teams Ceo And President Relationship Specialty Start Date End Date Jordyn Smith MD [address] [place] [address] PCP - General 11/01/06 documented as of this encounter
--- OUTSIDE RECORDS SUMMARY | 2024-07-30 10:56 | XMS_ITS | Clinical Summary ---
Author Organization [facility] Address [address] [place] [address] Care Team Providers Care Garage Attendant Name Role Phone Jordyn Smith MD Primary Care Provider [phone] Social History Tobacco Use Types Packs/Day Years Used Date Smoking Tobacco: Never Assessed Sex and Gender Information Value Date Recorded Sex Assigned at Not on file Gender Identity Not on file Sexual Orientation Not on file Job Start Date Occupation Industry Not on file Not on file Not on file Plan of Treatment Health Maintenance Due Date Last Done Comments Hepatitis C Screening 1950 COVID-19 Vaccine (#1) 1948 Depression Screening 1960 Preventative Health Evaluation 1966 Shingrix-Zoster Vaccine (1 o f 2) 1998 Fall Risk Assessment 2013 Osteoporosis Screening (DEXA Scan) 2013 DTap / Tdap / Td (2 - Td or Tdap) 06/27/2017 06/27/2007 Pneumococcal Vaccine (2 of 2 - PPSV23 or PCV20) 10/30/2018 10/30/2017 RSV Adult > 60+ Yrs or (1 - 1-dose 75+ series) 2023 Influenza Vaccine (#1) 2024 8, 03/29/2017 Hepatitis B Vaccines Aged Out No long er eligible based on patient's age to complete this topic RSV Ped < 20 months Aged Out No longe r eligible based on patient's age to complete this topic Care Teams Garage Attendant Relationship Specialty Start Date End Date Jordyn Smith MD PCP - General Internal Medicine 04/26/20
--- OUTSIDE RECORDS SUMMARY | 2024-07-30 10:56 | XMS_ITS ---
Author Organization [facility] Address [address] [place] [address] Care Team Providers Care Press Hand Name Role Phone Sarah BAKER, Jordyn Grigsby Primary Care Provider Unav ailable Ninfa Guzman Unavailable [phone] Encounters Encounter Location Date Provider Diagnosis [address] [address] 08/20/2023 Ninfa Guzman Plan Of Treatment No Information Progress Notes * Magdalena HENDRIXDOB:1950 ( 74 yo F)Acc No.[id number]:08/20/2023 Progress Notes Patient:?Magdalena HENDRIX Provider:?Ninfa Guzman DPM :1950???Age:73 Y???Sex:Female D ate:08/20/2023 Address:[address] [place], [place] [id number] Pcp:Jordyn Smith MD Subjective: * Chief Complaints: * ??? * Medical History:? Objective: * Vitals:? Assessment: Plan: * Treatment: * Images: * The named appointment provid er may or may not be the originator of this progress note, and it is not deemed complete until electronically signed by the appointment provider. Sign off status: Pending * Provider:?Ninfa Guzman DPM Date:? Generated for Carmen gardner/Seven/Lourdessmitting on:?07/30/2024 10:55 AM EST
== END 2024-07-30 10:26 | disposition home or self-care (01) ==
PROVIDERS: PCP Internal Medicine; Visit Provider Orthopaedic Surgery
DX: M17.12 Unilateral primary osteoarthritis, left knee (principal)
CPT/HCPCS: 99213; G2211

== ENCOUNTER → 2024-07-30 09:34 | Outpatient (BNVA) | payer MEDICARE, SELFPAY | PROVIDERS: PCP Internal Medicine; Visit Provider Orthopaedic Surgery | DX: M17.12 Unilateral primary osteoarthritis, left knee (principal) | CPT/HCPCS: 99212 ==

== ENCOUNTER 2024-10-14 10:53 | Outpatient (AMB) | payer MEDICARE, SELFPAY ==
[2024-10-14 11:00] VITALS: BMI 26.3
--- NOTE | 2024-10-14 11:00 | A.OFFVIS_ITS ---
Vital Signs 10/14/24 11:00 Height 5 ft 8 in Weight 173 lb BMI 26.3 Intake Visit Reasons: INJ- LT knee Durolane Intake Note: Magdalena is a 74 year old female who presents with complaints of progressively worsening left knee pain. She has failed the last 3 months of conservative treatment. She has tried Tylenol which gives only mild relief. She is not able to take anti-inflammatory medicines because she is on Eliquis. She wishes to hold off on surgery if at all possible. She has had cortisone injections in the past which gave her minimal relief. Allergies No Known Allergies Allergy (Verified 10/14/24 11:01) Medication List - Last Reconciled 10/14/24 by Leon Preston MD alprazolam 0.5 mg PO BID PRN apixaban (Eliquis) 5 mg PO BID atorvastatin 20 mg PO DAILY bupropion HCl 75 mg PO QAM cyclobenzaprine 10 mg PO DAILY PRN fluoxetine 60 mg PO QAM fluticasone propionate 50 mcg/actuation sprays intranasal lisinopril 5 mg PO DAILY meclizine 25 mg PO TID PRN metoprolol succinate ER 25 mg PO DAILY [facility] Surgical History Hx of left knee surgery Social History Alcohol intake: never Patient Tobacco Use Status: Never used Tobacco Current occupational status: employed and retired Physical Exam Vital Signs: BMI result Body Mass Index 26.3 Const Other: Well-nourished well-developed very friendly female awake alert and oriented x3 in no acute distress Extrem Other: Bilateral lower extremity examination shows good capillary refill, no skin lesions noted, normal sensation light touch Left knee examination shows a minimal effusion, palpable crepitus with range of motion, pain with range motion, no instability Office Procedures AMB Joint Injection/Aspiration Joint Injection/Aspiration Primary Site: left knee Prep: site was prepped using aseptic technique Injected: 60 mg of (Durolane viscosupplementation) and 1% plain lidocaine Procedure: The patient tolerated the procedure well Coding 67770 - Large joint Procedure code (CPT) selection complete Assessment & Plan Assessment & Plan (1) Osteoarthritis of left knee: Code(s): M17.12 - Unilateral primary osteoarthritis, left knee Category: Medical Plan Ms. Artis presents with left knee pain due to osteoarthritis. The risks and benefits of a Durolane viscosupplementation injection were discussed at length with the patient. The patient wished to proceed. She tolerated the injection well. She will continue with her home exercise program. She will follow up with me on an as-needed basis should her symptoms not plateau at an unacceptable level over the next few months. Feel free to call me at any time should questions regarding her orthopedic management arise. I spent 20 minutes in reviewing the patient's records and imaging studies, seeing the patient and documenting in the medical record. Orders: Orders AMB Joint Injection/Aspiration Today M17.12 - Unilateral primary osteoarthritis, left knee Coding Level of Care Code Est Pt Level 3 (88609) Complex EM visit Add On G2211 Diagnoses Osteoarthritis of left knee M17.12 CPT Codes Coding - 22251 Large joint: 34045 - Large joint ([id number])
--- OUTSIDE RECORDS SUMMARY | 2024-10-14 12:19 | XMS_ITS ---
Author Organization [facility] Address [address] [place] [address] Care Team Providers Care Physical Education Instructor Name Role Phone Jordyn Smith MD Primary Care Provider Unav ailable Ninfa Guzman Unavailable [phone] REASON FOR VISIT OUTSIDE OPERATOR Encounters Encounter Location Date Provider Diagnosis [facility] [address] [place] [address] 06/14/2023 Ninfa Guzman Plan Of Treatment No Information Progress Notes * Magdalena HENDRIXDOB:1950 ( 72 yo F)Acc No.[id number]:06/14/2023 Patient:?Chandra Magdalena :1950???Age:72 Y???Sex:Female Address:[address] [place] [address] * true * Date:? Generated for Carmen gardner/Seven/eTransmitting on:?10/14/2024 12:19 PM EDT
--- OUTSIDE RECORDS SUMMARY | 2024-10-14 12:21 | XMS_ITS | Clinical Summary ---
Author Organization [facility] Address [address] [place] [address] Care Team Providers Care Tool And Die Inspector Name Role Phone Facundo Hua MD Primary Care Provider Unavailable Allergies No known active allergies Social History Tobacco Use Types Packs/Day Years Used Date Smoking Tobacco: Never Assessed Comments Unknown Sex and Gender Information Value Date Recorded Sex Assigned at Not on file Legal Sex Female 10:16 AM EST Gender Identity Not on file Sexual [...] 1950 DTaP/Tdap/Td Vaccines (1 - Tdap) 1967 Pneumococcal Vaccines 50+ (1 of 1 - PCV) 1998 Zoster (Shingles) Vaccine (1 of 2) 1998 DXA Bone Density (Females,Ages 65 and older) 2013 RSV Vaccine 60 years and older and Patients (1 - 1-dose 75+ series) 2023 COVID-19 Vaccine ( - 2023-2 5 season) 2024 Influenza Vaccine 01/02/2025 03/08/2021, 03/05/2018, 03/29/2017 Hepatitis B Vaccines Aged Out No long er eligible based on patient's age to complete this topic Insurance [facility] Care Teams Tool And Die Inspector Relationship Specialty Start Date End Date Facundo Hua MD PCP - General Internal Medicine 07/18/21
--- OUTSIDE RECORDS SUMMARY | 2024-10-14 12:21 | XMS_ITS ---
Author Organization [facility] Address [address] [place] [address] Care Team Providers Care Supply Clerk Name Role Phone Sarah BAKER, Jordyn Grigsby Primary Care Provider Unav ailable Ninfa Guzman Unavailable [phone] Encounters Encounter Location Date Provider Diagnosis [address] [address] 08/20/2023 Ninfa Guzman Plan Of Treatment No Information Progress Notes * Magdalena HENDRIXDOB:1950 ( 74 yo F)Acc No.[id number]:08/20/2023 Progress Notes Patient:?Magdalena HENDRIX Provider:?Ninfa Guzman DPM :1950???Age:73 Y???Sex:Female D ate:08/20/2023 Address:[address] [place], [place] [phone] Pcp:Jordyn Smith MD Subjective: * Chief Complaints: [...] Guzman DPM Date:? Generated for Carmen gardner/Seven/Lourdessmitting on:?10/14/2024 12:21 PM EDT
--- OUTSIDE RECORDS SUMMARY | 2024-10-14 12:21 | XMS_ITS | Clinical Summary ---
Author Organization [facility] Address [address] [place] [address] Care Team Providers Care Barrel Loader And Cleaner Name Role Phone Jordyn Smith MD Primary Care Provider [phone] Social History Tobacco Use Types Packs/Day Years [...] age to complete this topic Care Teams Barrel Loader And Cleaner Relationship Specialty Start Date End Date Jordyn Smith MD PCP - General Internal Medicine 04/26/20
--- OUTSIDE RECORDS SUMMARY | 2024-10-14 12:21 | XMS_ITS | Patient Health Record ---
[facility] Address [address] [place] [address] Care Team Providers Care Table Games Shift Manager Name Role Phone Sarah BAKER, Jordyn Grigsby Primary Care Provider Unav ailable Ninfa Guzman Unavailable [phone] Reason For Referral No Information Plan Of Treatment No Information Insurance Providers Payer Name Payer Address Payer Phone Subscriber Number Group Number Insured Name Patient Relationship to Insured Coverage Start Date Coverage End Date [facility] 65 Medicare Preferred [address] [place] [address] [phone] [id number] Magdalena Artis Self - patient is the insured
== END 2024-10-14 11:15 | disposition home or self-care (01) ==
LOC: HO.HOS 10:54
PROVIDERS: PCP Internal Medicine; Visit Provider Orthopaedic Surgery
DX: M17.12 Unilateral primary osteoarthritis, left knee (principal)
CPT/HCPCS: 20610; 99213

== ENCOUNTER → 2024-10-14 10:53 | Outpatient (BNVA) | payer MEDICARE, SELFPAY | PROVIDERS: PCP Internal Medicine; Visit Provider Orthopaedic Surgery | DX: M17.12 Unilateral primary osteoarthritis, left knee (principal) | CPT/HCPCS: 20610; 99212; J2003; J7318 ==

== ENCOUNTER 2025-02-04 10:39 | Outpatient (AMB) | payer MEDICARE, SELFPAY ==
--- OUTSIDE RECORDS SUMMARY | 2025-02-04 09:30 | XMS_ITS | Encounter Summary ---
Author Organization [facility] Address [address] [place] [address] Care Team Providers Care Movement Assembly Final Inspector Name Role Phone Jordyn Smith MD Primary Care Provider [phone] Reason for Visit * Reason Comments Follow-up 6 mo Encounter Details Date Type Department Care Team ([facility] Contact Info) Description 02/04/2025 9:30 AM EDT Office Visit Adult Medicine [facility] [address] [place] [address] Jordyn Smith MD [address] [place] [address] Urinary tract infection without hematuria, site unspecified (Primary Dx); Anxiety; Atrial flutter, paroxysmal (CMS/HCC V24, CMS/HCC V28); Other hyperlipidemia; Depression, unspecified depression type; Hyperglycemia Social History Tobacco Use Types Packs/Day Years Used Date Smoking Tobacco: Former Cigarettes 0.5 30.3 0 10/30/1976 - 03/04/2007 Smokeless Tobacco: Former Tobacco Cessation:Counseling Given: Not Answered Alcohol Use Standard Drinks/Week Comments Yes 0 (1 standard drink = 0.6 oz pur e alcohol) occ Comments No Sex and Gender Information Value Date Recorded Sex Assigned at Not on file Legal Sex Female 8:44 PM EST Gender Identity Not on file Sexual Orientation Not on file documented as of this encounter Last Filed Vital Signs Vital Sign Reading Time Taken Comments Blood Pressure 113/60 02/04/2025 9:18 AM EDT Pulse 70 02/04/2025 9:18 AM EDT Temperature 36.7 C (98 F) 02/04/2025 9:18 AM EDT Respiratory Rate 16 02/04/2025 9:18 AM EDT Oxygen Saturation - - Inhaled Oxygen Concentration - - Weight 81.6 kg (180 lb) 02/04/2025 9:18 AM EDT Height 172.7 cm (5' 8 ) 02/04/2025 9:18 AM EDT Body Mass Index 27.37 02/04/2025 9:18 AM EDT documented in this encounter Ordered Prescriptions Prescription Sig Dispense Quantity Refills Last Filled Start Date End Date nitrofurantoin, macrocrystal-monoh ydrate, (MACROBID) 100 mg capsule Take 1 capsule (100 mg total) by mouth 2 (two) times a day for 7 days. 14 each 02/04/2025 documented in this encounter Progress Notes * Jordyn Smith MD - 02/04/2025 9:30 AM EDT CHIEF COMPLAINT: Follow-up (6 mo) IDENTIFIER: Magdalena Artis is a 74 y.o. old female. HPI: Pt presents for evaluation of multiple medical problems. Having dysuria after recent treatment for UTI with Augmentin, patient had repeat urine test. I reviewed the note by my colleague. Patient told me Augmentin was started and finished way before the second urine test. Patient denied fever chills suspicious back pain nausea vomiting. Patient appointment to see cardiology and pulmonology soon, her breathing has been stable however patient told me she feels lack of energy s patient denied chest pain palpitation increased leg edema.He feels low. She has appointment already scheduled see her psychiatrist. Patient denied chest pain shortness vests palpitation. She denied any sweating. Patient has questions regarding her sugar, she is asking whether she should check blood sugar at home ROS: GENERAL: Negative for malaise, significant weight loss and fever and SEE HPI RESPIRATORY: No cough, wheezing or shortness of breath, See HPI CARDIOVASCULAR: Negative for chest pain, leg swelling and palpitations, See HPI GI: Negative for abdominal discomfort, changes in bowel habits, blood in stool or black stools HEMATOLOGY/LYMPHOLOGY: No prolonged bleeding, easy bruising, or swollen lymph nodes ENDOCRINE: Negative for cold or heat intolerance, polyuria, polydipsia and goiter, See HPI NEURO: No persistent headache, fainting, seizures, strokes, TIAs, weakness, numbness or tingling PAST MEDICAL HISTORY: Patient Active Problem List Diagnosis Date Noted Pericardial effusion 02/29/2024 Dizziness 04/17/2023 UTI due to Klebsiella species 03/26/2023 Prediabetes 12/01/2021 Chronic kidney disease (CKD) 12/01/2021 Fatigue 10/14/2021 Atrial flutter, paroxysmal ([facility] V24, [facility] V28) 07/25/2021 Cervical spondylosis 06/10/2021 Abnormal echocardiogram 05/02/2021 Other hyperlipidemia 08/11/2016 RLS (restless legs syndrome) 12/15/2015 Anxiety 11/09/2015 Hip pain 04/27/2015 Depression 01/06/2010 Diverticulitis of colon without hemorrhage 08/19/2009 Benign essential hypertension 09/29/2005 SOCIAL HISTORY: Social History Tobacco Use Smoking status: Former Current packs/day: 0.00 Average packs/day: 0.5 packs/day for 30.3 years (15.2 ttl pk-yrs) Types: Cigarettes Start date: 10/30/1976 Quit date: 03/04/2007 Years since quittin.9 Smokeless tobacco: Former Substance Use Topics Alcohol use: Yes Comment: occ FAMILY HISTORY: Family Status Relation Name Status Mother (Not Specified) Father Sister (Not Specified) Brother (Not Specified) Brother (Not Specified) Neg Hx (Not Specified) No partnership data on file Family History Problem Relation Name Age of Onset Hypertension Mother ESRD Heart attack Father at age 72, HTN, stroke, basal cell ca Hypertension Sister Hypertension Brother Other (Other: Hodgkin's lymphoma) Brother Breast cancer Neg Hx ACTIVE MEDICATIONS: Outpatient Medications Marked as Taking for the 02/04/25 encounter (Office Visit) with Jordyn Smith MD Medication Sig Dispense Refill albuterol HFA (PROAIR HFA ; PROVENTIL HFA ; VENTOLIN HFA) 90 mcg/actuation inhaler Inhale 2 puffs by mouth every 6 (six) hours if needed for wheezing. albuterol HFA (PROAIR HFA ; PROVENTIL HFA ; VENTOLIN HFA) 90 mcg/actuation inhaler Inhale 2 puffs by mouth every 6 (six) hours if needed for wheezing or shortness of breath. 1 each 11 ALPRAZolam (XANAX) 0.5 mg tablet Take 1 tablet (0.5 mg total) by mouth. apixaban (Eliquis) 5 mg tablet Take 1 tablet (5 mg total) by mouth 2 (two) times a day. 180 tablet 1 atorvastatin (LIPITOR) 10 mg tablet Take 1 tablet (10 mg total) by mouth 1 (one) time each day. 90 tablet 1 buPROPion (WELLBUTRIN) 75 mg tablet Take 1 tablet (75 mg total) by mouth 1 (one) time each day in the morning. cyclobenzaprine (FLEXERIL) 10 mg tablet TAKE ONE TABLET BY MOUTH TWICE A DAY NEEDED FOR MUSCLE SPASMS 60 tablet 0 EPINEPHrine (EpiPen 2-Felix) 0.3 mg/0.3 mL injection Inject 0.3 mL (0.3 mg total) into the thigh if needed for anaphylaxis. 2 each 1 FLUoxetine (PROzac) 20 mg capsule TAKE TWO CAPSULES BY MOUTH EVERY MORNING AND TAKE ONE CAPSULE BY MOUTH DAILY AT BEDTIME fluticasone propionate (FLONASE) 50 mcg/actuation nasal spray Administer 1 spray into each nostril 1 (one) time each day. Shake gently. Before first use, prime pump. After use, clean tip and replace cap. latanoprost (XALATAN) 0.005 % ophthalmic solution INSTILL 1 DROP INTO BOTH EYES NIGHTLY. REFRIGERATE UNTIL OPENED. DISCARD BOTTLE 6 WEEKS AFTER OPENING) lisinopriL (PRINIVIL,ZESTRIL) 5 mg tablet Take 1 tablet (5 mg total) by mouth 1 (one) time each day. 90 tablet 1 metoprolol succinate (TOPROL-XL) 25 mg 24 hr tablet Take 1 tablet (25 mg total) by mouth 1 (one) time each day. Do not crush or chew. 90 tablet 1 multivitamin (Multiple Vitamins) tablet Take by mouth 1 (one) time each day. omeprazole OTC (PriLOSEC OTC) 20 mg EC tablet Take 1 tablet (20 mg total) by mouth 1 (one) time each day. Do not crush, chew, or split. zolpidem (AMBIEN) 10 mg tablet Take by mouth. ALLERGIES: Patient has no known allergies. PHYSICAL EXAM: Blood pressure 113/60, pulse 70, temperature 36.7 ??C (98 ??F), resp. rate 16, height 1.727 m (68 ), weight 81.6 kg (180 lb). Body mass index is 27.37 kg/m??. BMI is greater than 25.0 (above the normal range) - see Plan APPEARANCE: Alert and in no acute distress, well hydrated, well groomed NECK: No JVD HEART: Normal S1-S2 LUNG: clear to auscultation bilaterally ABDOMEN: Bowel sounds normoactive, no bruits and soft, non-tender, without organomegaly or palpablemasses EXTREMITIES: No edema DJD NEURO: Awake, alert and oriented x 3, reflexes symmetrical, and well-dressed and groomed, friendly and calm, no tremor grossly nonfocal SKIN: Skin color, texture, turgor normal. No rashes or lesions., No dehydration LABS: Lab Results Component Value Date GLUCOSE 106 (H) 09/01/2024 CALCIUM 9.4 09/01/2024 NA 141 09/01/2024 K 4.6 09/01/2024 CO2 25 09/01/2024 CL 109 09/01/2024 BUN 21 09/01/2024 CREATININE 1.05 09/01/2024 Lab Results Component Value Date HGBA1C 5.7 09/01/2024 HGBA1C 5.9 07/20/2023 Lab Results Component Value Date LDLCALC 97 09/01/2024 CREATININE 1.05 09/01/2024 MICROALBCREA abstracted 11/30/2021 Lab Results Component Value Date WBC 5.7 09/01/2024 HGB 13.8 09/01/2024 HCT 42.0 09/01/2024 MCV 96.1 09/01/2024 PLT 307 09/01/2024 Lab Results Component Value Date TSH 3.94 09/01/2024 Lab Results Component Value Date WBC 5.7 09/01/2024 HGB 13.8 09/01/2024 HCT 42.0 09/01/2024 MCV 96.1 09/01/2024 PLT 307 09/01/2024 BP Readings from Last 5 Encounters: 02/04/25 113/60 01/09/25 122/68 10/21/24 110/59 09/04/24 106/64 08/27/24 117/75 Wt Readings from Last 5 Encounters: 02/04/25 81.6 kg (180 lb) 01/09/25 81.2 kg (179 lb) 10/21/24 82.2 kg (181 lb 3.2 oz) 09/04/24 82.1 kg (181 lb) 08/27/24 81.6 kg (180 lb) IMPRESSION: No diagnosis found. PLAN: Pt presents for evaluation of multiple medical problems. Having dysuria after recent treatment for UTI with Augmentin, patient had repeat urine test. I reviewed the note by my colleague. Patient told me Augmentin was started and finished way before the second urine test. Patient denied fever chills suspicious back pain nausea vomiting. Patient appointment to see cardiology and pulmonology soon, her breathing has been stable however patient told me she feels lack of energy s patient denied chest pain palpitation increased leg edema.He feels low. She has appointment already scheduled see her psychiatrist. Patient denied chest pain shortness vests palpitation. She denied any sweating. Patient has questions regarding her sugar, she is asking whether she should check blood sugar at home 1 UTI, no other risk factors that may raise concern for contamination. I will add a 7-day course ofMacrobid. Discussed potential side effects. I will repeat a urine study with the previous experience. 2 hyperglycemia, overall mild, improving A1c. Strongly encouraged patient's effort, I do not need patient need to check blood glucose regularly at home. I will monitor laboratory studies. 3 patient's cardiac status stable, on appropriate medication with good control of blood pressure, weight, on anticoagulation with stable CBC I reviewed recent echocardiogram, pericardial effusion was described as trivial no hemodynamic significance. 4 patient respiratory status overall stable 5 regarding patient's fatigue lack of energy and incentive, I reviewed patient's recent favorable laboratory test, TSH electrolytes hepatal renal function etc. I am wondering whether we can increase patient's Wellbutrin. Patient will discuss with her specialist. No orders of the defined types were placed in this encounter. ADDITIONAL ORDERS: None Jordyn Smith MD on 02/04/2025 at 9:34 AM EDT documented in this encounter Plan of Treatment Upcoming Encounters Date Type Department Care Team (Late st Contact Info) Description 02/23/2025 10:40 AM EDT Office Visit [facility] [address] [place] [id number] Ninfa Vaz NP [address] [place] [address] [address] [place] [phone] 05/14/2025 2:45 PM EST Office Visit Adult Medicine [facility] [address] [place] [address] Jordyn Smith MD [address] [place] [address] 10/21/2025 11:00 AM EDT Office Visit Pulmonolgy [facility] [address] [facility] [address] [place] [phone] Crystal Steiner MD [address] [place] [phone] Scheduled Orders Name Type Priority Associated Diagnoses Orde r Schedule Urinalysis with microscopic reflex culture Lab Routine Urinary tract infection without hematuria, site unspecified 1 Occurrences starting 02/04/2025 until 02/04/2026 Culture urine Microbiology Routine Urinary tract infection without hematuria, site unspecified 1 Occurrences starting 02/04/2025 until 02/04/2026 documented as of this encounter Visit Diagnoses Diagnosis Urinary tract infection without hematuria, site unspecified- Primary Anxiety Anxiety state, unspecified Atrial flutter, paroxysmal (CMS/HCC V24, CMS/HCC V28) Other hyperlipidemia Depression, unspecified depression type Hyperglycemia Other abnormal glucose documented in this encounter Care Teams Movement Assembly Final Inspector Relationship Specialty Start Date End Date Jordyn Smith MD [address] [place] [id number] PCP - General 11/01/06 documented as of this encounter
--- NOTE | 2025-02-04 11:05 | MHC.OFFVIS ---
Vital Signs 02/04/25 11:10 Height 5 ft 8 in Weight 180 lb BMI 27.4 Intake Visit Reasons: Left knee pain Intake Note: Magdalena is a 74 year year old female who presents with complaints of left knee pain. The patient describes her pain as sharp in nature. Earlier this year she had a Durolane viscosupplementation injection given into her left knee which gave her minimal relief. She has had cortisone injections in the past which gave her fairly good relief. She wishes to hold off on further surgery if at all possible. She has tried Tylenol which gives only mild relief. She is not able to take anti-inflammatory medicines because she is on Eliquis. Allergies No Known Allergies Allergy (Verified 02/04/25 11:11) Medication List - Last Reconciled 02/04/25 by Leon Preston MD alprazolam 0.5 mg PO BID PRN apixaban (Eliquis) 5 mg PO BID atorvastatin 20 mg PO DAILY bupropion HCl 75 mg PO QAM cyclobenzaprine 10 mg PO DAILY PRN fluoxetine 60 mg PO QAM fluticasone propionate 50 mcg/actuation sprays intranasal lisinopril 5 mg PO DAILY meclizine 25 mg PO TID PRN metoprolol succinate ER 25 mg PO DAILY PFSH Surgical History Hx of left knee surgery Social History Alcohol intake: never Patient Tobacco Use Status: Never used Tobacco Current occupational status: employed and retired Physical Exam Vital Signs: BMI result Body Mass Index 27.4 Const Other: Well-nourished well-developed very friendly female awake alert and oriented x3 in no acute distress Extrem Other: Left knee examination shows a minimal effusion, palpable crepitus with range of motion, pain with range of motion, no instability Office Procedures AMB Joint Injection/Aspiration Joint Injection/Aspiration Primary Site: left knee Prep: site was prepped using aseptic technique Injected: 40 mg of, DepoMedrol and 1% plain lidocaine Procedure: The patient tolerated the procedure well Coding 34598 - Large joint Procedure code (CPT) selection complete Results Reviewed Results Reviewed: X-rays of the patient's left knee taken previously show joint space narrowing, subchondral sclerosis, no acute bony abnormalities Assessment & Plan Assessment & Plan (1) Osteoarthritis of left knee: Code(s): M17.12 - Unilateral primary osteoarthritis, left knee Category: Medical (2) Left knee pain: Code(s): M25.562 - Pain in left knee Plan Mrs. Artis presents with left knee pain due to osteoarthritis. The risks and benefits of a left knee cortisone injection were discussed at length with the patient. The patient wished to proceed. She tolerated the injection well. She will continue with her home exercise program. She will contact me prior to her follow-up appointment in 3 months should any questions or concerns arise. Feel free to call me at any time should questions regarding her orthopedic management arise. I spent 21 minutes in reviewing the patient's records and imaging studies, seeing the patient and documenting in the medical record. Orders: Orders AMB Joint Injection/Aspiration Today M17.12 - Unilateral primary osteoarthritis, left knee Coding Level of Care Code Est Pt Level 3 (47483) Complex EM visit Add On G2211 Diagnoses Osteoarthritis of left knee M17.12 Left knee pain M25.562 CPT Codes Coding - 98982 Large joint: 32495 - Large joint ([id number])
[2025-02-04 11:10] VITALS: BMI 27.4
--- OUTSIDE RECORDS SUMMARY | 2025-02-04 12:24 | XMS_ITS | Clinical Summary ---
Author Organization [facility] Address [address] [place] [address] Care Team Providers Care Pals Specialist Name Role Phone Facundo Hua MD Primary [...] 61 08/05/2021 12:35 PM EST Temperature 35.8 C (96.4 F) 08/05/2021 12:35 PM EST Respiratory Rate 18 08/05/2021 12:35 PM EST Oxygen Saturation 98% 08/05/2021 12:35 PM EST Inhaled Oxygen Concentration - - Weight - - Height - - Body Mass Index - - Plan of Treatment Health Maintenance Due Date Last Done Comments Advance Care Planning 1950 Hepatitis C Virus Screening 1950 DTaP/Tdap/Td Vaccines [...] patient's age to complete this topic Insurance BLUE [employer]OSS [employer] MEDICARE Care Teams Pals Specialist Relationship Specialty Start Date End Date Facundo Hua MD PCP - General Internal Medicine 07/18/21
--- OUTSIDE RECORDS SUMMARY | 2025-02-04 12:24 | XMS_ITS ---
Author Name [facility] Organization Unknown Encounters Encounter Type Encounter Reason Primary Diagnosis [facility] Date [facility] Care Team Organization Name Specialty Phone Email Start Date End [facility] Sarah [facility] 08/05/2021 08/05/2021
--- OUTSIDE RECORDS SUMMARY | 2025-02-04 12:24 | XMS_ITS | Clinical Summary ---
Author Organization [facility] Address [address] [place] [address] Care Team Providers Care Bankruptcy Processor Name Role Phone Jordyn Smith MD Primary Care Provider [phone] Social History Tobacco Use Types Packs/Day Years [...] 1-dose 75+ series) 2023 Influenza Vaccine (#1) 2025 8, 03/29/2017 Hepatitis B Vaccines Aged Out No long er eligible based on patient's age to complete this topic RSV Ped < 20 months Aged Out No longe r eligible based on patient's age to complete this topic Care Teams Bankruptcy Processor Relationship Specialty Start Date End Date Jordyn Smith MD PCP - General Internal Medicine 04/26/20
--- OUTSIDE RECORDS SUMMARY | 2025-02-04 12:24 | XMS_ITS | Clinical Summary ---
Author Organization [address] [facility] Address [address] [place] [address] Phone Care Team Providers Care Mission Commander Name Role Phone Jordyn Smith MD Primary Care Provider [phone] Allergies No known active allergies Medications multivitamin (Multiple Vitamins) tablet Take by mouth 1 (one) time each day. Active ALPRAZolam (XANAX) 0.5 mg tablet Take 1 tablet (0.5 mg total) by mouth. Active zolpidem (AMBIEN) 10 mg tablet Take by mouth. Activ e buPROPion (WELLBUTRIN) 75 mg tablet Take 1 tablet (75 mg total) by mouth 1 (one) time each day in the morning. 3 Active latanoprost (XALATAN) 0.005 % ophthalmic solution INSTILL 1 DROP INTO BOTH EYES NIGHTLY. REFRIGERATE UNTIL OPENED. DISCARD BOTTLE 6 WEEKS AFTER OPENING) 3 Active FLUoxetine (PROzac) 20 mg capsule TAKE TWO CAPSULES BY MOUTH EVERY MORNING AND TAKE ONE CAPSULE BY MOUTH DAILY AT BEDTIME 4 Active albuterol HFA (PROAIR HFA ; PROVENTIL HFA ; VENTOLIN HFA) 90 mcg/actuation inhaler Inhale 2 puffs by mouth every 6 (six) hours if needed for wheezing. Active fluticasone propionate (FLONASE) 50 mcg/actuation nasal spray Administer 1 spray into each nostril 1 (one) time each day. Shake gently. Before first use, prime pump. After use, clean tip and replace cap. Active omeprazole OTC (PriLOSEC OTC) 20 mg EC tablet Take 1 tablet (20 mg total) by mouth 1 (one) time each day. Do not crush, chew, or split. 5 08/05/19 26 Active EPINEPHrine (EpiPen 2-Felix) 0.3 mg/0.3 mL injection Inject 0.3 mL (0.3 mg total) into the thigh if needed for anaphylaxis. 2 each 5 Active metoprolol succinate (TOPROL-XL) 25 mg 24 hr tablet Take 1 tablet (25 mg total) by mouth 1 (one) time each day. Do not crush or chew. 90 tablet 1 5 Active lisinopriL (PRINIVIL,ZESTR IL) 5 mg tablet Take 1 tablet (5 mg total) by mouth 1 (one) time each day. 90 tablet 1 5 Active atorvastatin (LIPITOR) 10 mg tablet Take 1 tablet (10 mg total) by mouth 1 (one) time each day. 90 tablet 1 5 Active apixaban (Eliquis) 5 mg tablet Take 1 tablet (5 mg total) by mouth 2 (two) times a day. 180 tablet 1 5 Active cyclobenzaprine (FLEXERIL) 10 mg tabletIndicatio ns:Low back pain, unspecified back pain laterality, unspecified chronicity, unspecified whether sciatica present TAKE ONE TABLET BY MOUTH TWICE A DAY NEEDED FOR MUSCLE SPASMS 60 tablet 5 Active albuterol HFA (PROAIR HFA ; PROVENTIL HFA ; VENTOLIN HFA) 90 mcg/actuation inhaler Inhale 2 puffs by mouth every 6 (six) hours if needed for wheezing or shortness of breath. 1 each 5 10/22/19 26 Active nitrofurantoin, macrocrystal-mo nohydrate, (MACROBID) 100 mg capsule Take 1 capsule (100 mg total) by mouth 2 (two) times a day for 7 days. 14 each 5 02/12/20 25 Active amoxicillin-cla vulanate (AUGMENTIN) 875-125 mg per tablet Take 1 tablet by mouth 2 (two) times a day for 7 days. 14 each 08/08/01/17/20 25 Active Problems Problem Noted Date Diagnosed Date Pericardial effusion 02/29/2024 Assessment & Plan (08/11/2024 8:48 AM EDT): The patient has a history of a chronic trivial pericardial effusion noted on previous cardiac testing. This is likely physiological (benign) in nature. No further follow-up is indicated for this issue. Dizziness 04/17/2023 Overview (02/29/2024): Last Assessment & [...] well regarding her fatigue. Atrial flutter, paroxysmal (CMS/HCC V24, CMS/HCC V28) 07/25/2021 Overview (02/29/2024): Last Assessment & Plan: Patient has a history of paroxysmal atrial flutter. She continues on rate control therapy with beta-bette. Her heart rate is well controlled today. She continues on anticoagulation therapy with Eliquis. She has a [id number] score of 3. She denies any excessive [...] in frequency or duration. Continue current therapies. Assessment & Plan (08/11/2024 8:48 AM EDT): The patient has a history of paroxysmal atrial flutter. She is on rate control therapy with metoprolol. The patient refers infrequent episodes of palpitations and only last for a few seconds per episode. She denies any prolonged episodes of palpitations. as such, we will continue her current rate control therapy with metoprolol. The patient has a [id number] score of 4 (age, gender, hypertension). She continues on anticoagulation therapy with Eliquis. No abnormal bleeding has been noted. Will continue her current therapy. Cervical spondylosis 06/10/2021 Overview (02/29/2024): Last Assessment [...] there are any concerns in the future. Abnormal echocardiogram 05/02/2021 Other hyperlipidemia 08/11/2016 Overview (02/29/2024): Last Assessment & Plan: [...] and following up with routine medical care. Assessment & Plan (08/11/2024 8:48 AM EDT): The patient has a history of hyperlipidemia. She is currently on atorvastatin 10 mg orally daily. Orders: Lipid panel with reflex to direct LDL; Future RLS (restless legs syndrome) 12/15/2015 Anxiety 11/09/2015 [...] to monitor her blood pressures at home. Assessment & Plan (08/11/2024 8:48 AM EDT): The patient has a history of arterial hypertension. The patient's blood pressure today was noted to be well controlled. We'll continue the current antihypertensive medication regimen. Resolved Problems Problem Noted Date Diagnosed Date Resolved Date Chest pain 07/07/2021 08/11/2024 Overview (02/29/2024): Last Assessment & Plan: Patient [...] and following up with routine medical care. Syncope 05/06/2021 08/11/2024 Overview (02/29/2024): Last Assessment & Plan: The [...] a cause of her symptoms. Dyspnea 05/06/2021 08/11/2024 Overview (02/29/2024): Last Assessment & Plan: The patient continues to endorse experiencing exertional shortness of breath. Will order a pulmunary function test to rule out any underlying pulmonary disease as the cause of her symptoms. Encounters Date Type Department Care Team Description 02/04/2025 9:30 AM EDT Office Visit [address] [phone] Jordyn Smith MD Urinary tract infection without hematuria, site unspecified (Primary Dx); Anxiety; Atrial flutter, paroxysmal ([facility] V24, [facility] V28); Other hyperlipidemia; Depression, unspecified depression type; Hyperglycemia 01/09/2025 9:00 AM EDT Office Visit [address] [phone] Darlene Cheney PA Acute cystitis without hematuria (Primary Dx); Dysuria; Urinary frequency; Stage 3 chronic kidney disease, unspecified whether stage 3a or 3b CKD ([facility] V24, [facility] V28); Prediabetes from Last 3 Months Immunizations Name Administration [...] Surgery Date Site/Laterality Comments COLONOSCOPY 08/19/2009 PROCEDURE: HI COLONOSCOPY FLX DX W/COLLJ SPEC WHEN PFRMD; COMMENT: diverticulosis ESOPHAGOGASTRODUODENOSCOPY 06/04/2013 PROCEDURE: HI ESOPHAGOGASTRODUODENOSCOPY TRANSORAL DIAGNOSTIC; COMMENT: normal COLONOSCOPY 05/17/2022 [...] 16 02/04/2025 9:18 AM EDT Oxygen Saturation 98% 10/21/2024 12:06 PM EDT Inhaled Oxygen Concentration - - Weight 81.6 kg (180 lb) 02/04/2025 9:18 AM EDT Height 172.7 cm (5' 8 ) 02/04/2025 9:18 AM EDT Body Mass Index 27.37 02/04/2025 9:18 AM EDT Plan of Treatment Upcoming Encounters Date Type Department Care Team (Late st Contact Info) Description 02/23/2025 10:40 AM EDT Office Visit [facility] [address] [place] [address] Ninfa Vaz NP [address] [place] [address] [address] [place] [phone] 05/14/2025 2:45 PM EST Office Visit Adult Medicine [facility] [address] [place] [phone] Jordyn Smith MD [address] [place], [place] [phone] 10/21/2025 11:00 AM EDT Office Visit Pulmonolgy - [place] [address] [place] [phone] Crystal Steiner MD [address] [place] [phone] Health Maintenance Due Date Last Done Comments Zoster Vaccines (1 of 2) 1969 Hepatitis C Screening 05/13/2022 Medicare Annual Wellness Visit 05/13/2022 Social Influencers of Health Screening 05/13/2022 Falls Risk Assessment 04/04/2024 04/04/2023 Depression Screening 06/04/2024 04/04/2023 COVID-19 Vaccine (7 - Moderna risk 2023- season) 2025 03/10/2024, 08/03/2022, 12/29/2021, Additional history exists Influenza Vaccine (#1) 2025 , 02/07/2023, 03/18/2022, Additional history exists Hypertension/CHF/CAD Annual BMP Blood Test 09/01/2025 09/01/2024, 07/20/2023 DTaP,Tdap,and Td Vaccines (3 - Td or Tdap) 06/10/2029 06/10/2019, 06/27/2007 Cholesterol Screening (Lipid Panel) 09/01/2029 09/01/2024, 07/20/2023 Osteoporosis Screening (Bone Density Screening) 03/01/2033 03/01/2023 Pneumococcal Vaccine: 50+ Years Completed 10/17/2022, 10/30/2017 Breast Cancer Screening Discontinued 12/11/2022, 12/22 RSV Immunization Adult Patients Completed 02/07/2023 HIB Vaccines Aged Out No longer eligi [...] age to complete this topic Meningococcal B Vaccine Aged Out No l onger eligible based on patient's age to complete this topic RSV Immunization Patients Under 20 months Aged Out No longer eligible based on patient's age to complete this topic Varicella Vaccines Aged Out No longer eligible based on patient's age to complete this topic Procedures Procedure Name Priority Date/Time Associated Diagnosis Comments ALEXANDRE URINE CULTURE TUBE Routine 01/30/2025 9:22 AM EDT Stage 3 chronic kidney disease, unspecified whether stage 3a or 3b CKD ([facility]/HCC V24, [facility] V28) Dysuria Urinary frequency Prediabetes URINALYSIS WITH REFLEX MICROSCOPIC AND CULTURE Routine 01/30/2025 8:11 AM EDT Stage 3 chronic kidney disease, unspecified whether stage 3a or 3b CKD (CMS/HCC V24, CMS/[facility] V28) Dysuria Urinary frequency Prediabetes URINALYSIS WITH REFLEX MICROSCOPIC AND CULTURE Routine 01/30/2025 8:11 AM EDT Stage 3 chronic kidney disease, unspecified whether stage 3a or 3b CKD (CMS/HCC V24, CMS/[facility] V28) Dysuria Urinary frequency Prediabetes CULTURE URINE Routine 01/30/2025 8:11 AM EDT Stage 3 chronic kidney disease, unspecified whether stage 3a or 3b CKD (CMS/HCC V24, CMS/[facility] V28) Dysuria Urinary frequency Prediabetes COMPREHENSIVE METABOLIC PANEL Routine 09/01/2024 8:25 AM EDT Prediabetes Dizziness LIPID PANEL WITH REFLEX TO DIRECT LDL Routine 09/01/2024 8:25 AM EDT Other hyperlipidemia HM DEPRESSION SCREENING Routine 04/04/2023 FALLS RISK ASSESSMENT [...] Recently Relevant to Health Maintenance Results * Alexandre urine culture tube (01/30/2025 9:22 AM EDT) Extra Tube Hold for add-ons. 01/30/2025 11:01 AM EDT [facility] Comment:Auto resulted. Urine Urine specimen obtained by clean catch procedure / Unknown Non-blood Collection / Unknown 01/30/2025 9:22 AM EDT 01/30/2025 9:22 AM EDT Darlene TOBIN LAB URINE ORDERABLES Fin al Result [facility] [address] [place] [address], [place] [phone] * (ABNORMAL) Urinalysis with reflex microscopic and culture (01/30/2025 8:11 AM EDT) Specific [place] Urine 1.020 1.003 - 1.030 LAB URINALYSIS - AUTOMATED METHOD 01/30/2025 11:28 AM EDT [facility] pH, Urine 6.0 5.0 - 8.0 pH LAB URINALYSIS - AUTOMATED METHOD 01/30/2025 11:28 AM [facility] Leukocytes, Urine Moderate(A) Negative LAB URINALYSIS - AUTOMATED METHOD 01/30/2025 11:28 AM [facility] Nitrite, Urine Positive(A) Negative LAB URINALYSIS - AUTOMATED METHOD 01/30/2025 11:28 AM [facility] Protein, Urine Trace <=Trace mg/dL LAB URINALYSIS - AUTOMATED METHOD 01/30/2025 11:28 AM [facility] Glucose, Urine Negative Negative mg/dL LAB URINALYSIS - AUTOMATED METHOD 01/30/2025 11:28 AM [facility] Ketones, Urine Negative Negative mg/dL LAB URINALYSIS - AUTOMATED METHOD 01/30/2025 11:28 AM [facility] Urobilinogen , Urine 0.2 0.2 - 1.0 mg/dL LAB URINALYSIS - AUTOMATED METHOD 01/30/2025 11:28 AM [facility] Bilirubin, Urine Negative Negative LAB URINALYSIS - AUTOMATED METHOD 01/30/2025 11:28 AM [facility] Blood, Urine Moderate(A) Negative LAB URINALYSIS - AUTOMATED METHOD 01/30/2025 11:28 AM [facility] RBC, Urine 4 0 - 4 /HPF 01/30/2025 11:28 AM [facility] WBC, Urine >100(H) 0 - 4 /HPF 01/30/2025 11:28 AM [facility] Squamous Epithelial, Urine >100(H) 0 - 60 /LPF 01/30/2025 11:28 AM [facility] Non-Squamous Epithelial, Urine 10-20 TRANSITIONAL /LPF 01/30/2025 11:28 AM [facility] Bacteria, Urine Many(A) Negative /HPF 01/30/2025 11:28 AM EDT [facility] Hyaline Casts, Urine 5.9(H) 0 - 3 /LPF 01/30/2025 11:28 AM EDT [facility] Urine Urine specimen obtained by clean catch procedure / Unknown Non-blood Collection / Unknown 01/30/2025 8:11 AM EDT 01/30/2025 8:11 AM EDT Darlene TOBIN LAB URINE ORDERABLES Fin al Result [facility] [address] [place] [address], [place] [phone] * (ABNORMAL) Culture urine (01/30/2025 8:11 AM EDT) Culture, Urine >=100,000 CFU/mL Escherichia coli(A) MALINDA 02/01/2025 11:49 AM EDT [facility] Comment: The organism value for this result has been updated. These results have been appended to the previously preliminary verified report. Urine Urine specimen obtained by clean catch procedure / Unknown Non-blood Collection / Unknown 01/30/2025 8:11 AM EDT 01/30/2025 11:28 AM EDT Narrative Organism Antibiotic Method Susceptibility Escherichia coli Amoxicillin/Clavulanate MALINDA <=2 ug/ml: Susceptible Escherichia coli Ampicillin/Sulbactam MALINDA <=2 ug/ml: Susceptible Escherichia coli Piperacillin/Tazobactam MALINDA <=4 ug/ml: Susceptible Escherichia coli Cefazolin (Urine) MALINDA <=1 ug/ml: Susceptible Escherichia coli Cefoxitin MALINDA <=4 ug/ml: Susceptible Escherichia coli Ceftazidime MALINDA <=0.5 ug/ml: Susceptible Escherichia coli Ceftriaxone MALINDA <=0.25 ug/ml: Susceptible Escherichia coli Cefepime MALINDA <=0.12 ug/ml: Susceptible Escherichia coli Meropenem MALINDA <=0.25 ug/ml: Susceptible Escherichia coli Amikacin MALINDA 4 ug/ml: Susceptible Escherichia coli Gentamicin MALINDA <=1 ug/ml: Susceptible Escherichia coli Ciprofloxacin MALINDA <=0.06 ug/ml: Susceptible Escherichia coli Levofloxacin MALINDA <=0.12 ug/ml: Susceptible Escherichia coli Nitrofurantoin MALINDA <=16 ug/ml: Susceptible Escherichia coli Trimethoprim/Sulfamethoxazole MALINDA <=20 ug/ml: Susceptible Darlene TOBIN LAB MICROBIOLOGY - GENER AL ORDERABLES Final Result [facility] [address] [place] [address], [place] [phone] * Lipid panel with reflex to direct LDL (09/01/2024 8:25 AM EDT) Cholesterol 190 0 - 200 mg/dL LAB CHEMISTRY METHOD 09/01/2024 10:39 AM EDT [facility] Triglycerides 70 0 - 150 mg/dL LAB CHEMISTRY METHOD 09/01/2024 10:39 AM EDT [facility] HDL 79 >=40 mg/dL LAB CHEMISTRY METHOD 09/01/2024 10:39 AM EDT [facility] LDL Calculated 97 0 - 100 mg/dL LAB CHEMISTRY METHOD 09/01/2024 10:39 AM [facility] VLDL Cholesterol Mauro 14 mg/dL LAB CHEMISTRY METHOD 09/01/2024 10:39 AM EDT [facility] Non HDL Chol. (LDL+VLDL) 111 <145 mg/dL LAB CHEMISTRY METHOD 09/01/2024 10:39 AM EDT [facility] Chol/HDL Ratio 2.4 0.0 - 4.4 LAB CHEMISTRY METHOD 09/01/2024 10:39 AM [facility] Blood Venous blood specimen / Unknown Venipuncture / Unknown 09/01/2024 8:25 AM EDT 09/01/2024 8:25 AM EDT us Facundo Hua MD LAB BLOOD ORDERABLES F inal Result [facility] [address] [place] [address], * (ABNORMAL) Comprehensive metabolic panel (09/01/2024 8:25 AM EDT) Sodium 141 133 - 145 mmol/L LAB CHEMISTRY METHOD 09/01/2024 10:39 AM [facility] Potassium 4.6 3.5 - 5.5 mmol/L LAB CHEMISTRY METHOD 09/01/2024 10:39 AM [facility] Chloride 109 96 - 110 mmol/L LAB CHEMISTRY METHOD 09/01/2024 10:39 AM [facility] CO2 25 21 - 32 mmol/L LAB CHEMISTRY METHOD 09/01/2024 10:39 AM [facility] Anion Gap 7 3 - 11 LAB CHEMISTRY METHOD 09/01/2024 10:39 AM [facility] Glucose 106(H) 70 - 100 mg/dL LAB CHEMISTRY METHOD 09/01/2024 10:39 AM [facility] BUN 21 5 - 25 mg/dL LAB CHEMISTRY METHOD 09/01/2024 10:39 AM [facility] Creatinine 1.05 0.50 - 1.10 mg/dL LAB CHEMISTRY METHOD 09/01/2024 10:39 AM [facility] eGFR 55(L) >=60 mL/min/1. 73m2 LAB CHEMISTRY METHOD 09/01/2024 10:39 AM [facility] Comment:Calculation based on the Chronic Kidney Disease Epidemiology Collaboration (CKD-EPI) equation refit without adjustment for race. BUN/Creatinine Ratio 20.0 LAB CHEMISTRY METHOD 09/01/2024 10:39 AM [facility] Calcium 9.4 8.5 - 10.5 mg/dL LAB CHEMISTRY METHOD 09/01/2024 10:39 AM EDT [facility] AST (SGOT) 25 10 - 42 unit/L LAB CHEMISTRY METHOD 09/01/2024 10:39 AM T [facility] ALT (SGPT) 32 10 - 60 unit/L LAB CHEMISTRY METHOD 09/01/2024 10:39 AM EDT [facility] Alkaline Phosphatase 92 42 - 121 unit/L LAB CHEMISTRY METHOD 09/01/2024 10:39 AM EDT [facility] Total Protein 7.3 6.0 - 8.0 g/dL LAB CHEMISTRY METHOD 09/01/2024 10:39 AM EDT [facility] Albumin 3.9 3.2 - 5.0 g/dL LAB CHEMISTRY METHOD 09/01/2024 10:39 AM [facility] Total Bilirubin 0.6 0.0 - 1.4 mg/dL LAB CHEMISTRY METHOD 09/01/2024 10:39 AM T [facility] Blood Venous blood specimen / Unknown Venipuncture / Unknown 09/01/2024 8:25 AM EDT 09/01/2024 8:25 AM EDT us Jordyn Smith MD LAB BLOOD ORDERABLES Final Resul t [facility] [address] [place] [address], * Falls Risk Assessment (04/04/2023) Falls Risk Assessment abstracted us Historical Provider HEALTH MAINTENANCE Final Result * Depression Screening (04/04/2023) Depression Screening abstracted us Historical Provider HEALTH MAINTENANCE Final Result * DXA BONE DENSITY STUDY 1+ SITS AXIAL SKEL (03/01/2023 11:33 AM EDT) Anatomical Region Laterality Modality Bone Densitometr y 11/08/2021 11:1 8 AM EDT Narrative 03/01/2023 2:50 PM EDT BONE DENSITY Lumbar Spine T-score is +1.0 (SD relative to 20-29 y/o adult) Z-score is +3.3 (SD relative to age matched peers) This is normal by criteria defined by the WHO. Left Hip T-score is +0.3 Z-score is +2.3 This is normal by criteria defined by the WHO. Comparison exam(s): significant increase in bone density of hip and lumbar spine when compared to most recent bone density examination Confidence level is +/-95%. Impression: Based on the World Health Organization criteria, Magdalena Hendrix should be classified as having normal bone density. The [facility] Department of Internal Medicine recommends using National [...] on the World Health Organization criteria, Magdalena Hendrix should beclassified as having normal bone density. The [facility] Department of Internal Medicine recommendsusing National Osteoporosis [...] or over-estimation of fracture risk by FRAX. Francois TOBIN IMG DXA PROCEDURES Final Result * SCREENING MAMMOGRAPHY BI 2-VIEW BREAST INC CAD (12/11/2022 9:26 AM EDT) Anatomical Region Laterality Modality Radiographic Fnag ging 11/08/2021 10:2 4 AM EDT Narrative [...] interpreted with the aid of computer-aided detection. Comparison is made with 12/22/2016 and as far back as 10/29/2014. Breast parenchyma is composed of scattered fibroglandular densities. No new suspicious mass, architectural distortion, or suspicious [...] CROSS - [place] Care Teams Mission Commander Relationship Specialty Start Date End Date Jordyn Smith MD [address] [place] [address] PCP - General 11/01/06
== END 2025-02-04 11:49 | disposition home or self-care (01) ==
PROVIDERS: PCP Internal Medicine; Visit Provider Orthopaedic Surgery
DX: M17.12 Unilateral primary osteoarthritis, left knee (principal); M25.562 Pain in left knee
CPT/HCPCS: 20610; 99213

== ENCOUNTER → 2025-02-04 10:39 | Outpatient (BNVA) | payer MEDICARE, SELFPAY | PROVIDERS: PCP Internal Medicine; Visit Provider Orthopaedic Surgery | DX: M25.562 Pain in left knee (principal); M17.12 Unilateral primary osteoarthritis, left knee | CPT/HCPCS: 20610; 99212; J1010; J2003 ==

== ENCOUNTER 2025-04-23 08:31 | Outpatient (AMB) | payer MEDICARE, SELFPAY ==
[2025-04-23 08:45] VITALS: BMI 18.2
--- NOTE | 2025-04-23 08:45 | A.OFFVIS_ITS ---
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 Patient is requesting to have a right knee cortisone injection at today's visit. At today's visit she reports she is having pain and difficulty walking with her right knee and pain is mainly on her her lateral aspect of knee. States she has no balance, no stability and believes pain started after a fall in July. States she has tried using a brace which provides some support. Xrays updated in office. Allergies No Known Allergies Allergy (Verified 04/23/25 08:50) Medication List - Last Reconciled 04/23/25 by Leon Preston MD alprazolam 0.5 mg PO BID PRN apixaban (Eliquis) 5 mg PO BID atorvastatin 20 mg PO DAILY bupropion HCl 75 mg PO QAM cyclobenzaprine 10 mg PO DAILY PRN fluoxetine 60 mg PO QAM fluticasone propionate 50 mcg/actuation sprays intranasal lisinopril 5 mg PO DAILY meclizine 25 mg PO TID PRN metoprolol succinate ER 25 mg PO DAILY PFSH Surgical History Hx of left knee surgery Social History Alcohol intake: never Patient Tobacco Use Status: Never used Tobacco Current occupational status: employed and retired Physical Exam Vital Signs: BMI result Body Mass Index 18.2 Extrem Other: Right knee examination shows a minimal effusion, palpable crepitus with range of motion, pain with range of motion, no instability Office Procedures AMB Joint Injection/Aspiration Joint Injection/Aspiration Primary Site: Right Knee Prep: site was prepped using aseptic technique Injected: 40 mg of, DepoMedrol, with 3 mL of and 1% plain Lidocaine Procedure: The patient tolerated the procedure well Coding 10922 - Large joint Procedure code (CPT) selection complete Results Reviewed Results Reviewed: X-rays of the patient's right knee taken today show mild diffuse joint space narrowing, no acute bony abnormalities Assessment & Plan Assessment & Plan (1) Osteoarthritis of right knee: Code(s): M17.11 - Unilateral primary osteoarthritis, right knee Category: Medical Plan Ms. Artis presents with right knee pain due to degenerative joint disease. The risks and benefits of a right knee cortisone injection were discussed at length with the patient. The patient wished to proceed. She tolerated the injection well. She will continue with her activity modifications. She will contact me prior to her follow-up appointment in 3 months should any questions or concerns arise. Feel free to call me at any time should questions regarding her or thopedic management arise. I spent 21 minutes in reviewing the patient's records and imaging studies, seeing the patient and documenting in the medical record. Orders: Orders XR knee RT 3V Today M25.561 - Pain in right knee AMB Joint Injection/Aspiration Today M17.11 - Unilateral primary osteoarthritis, right knee Coding Level of Care Code New Pt Level 3 (13082) Complex EM visit Add On G2211 Diagnoses Osteoarthritis of right knee M17.11 CPT Codes Coding - 15567 Large joint: 09062 - Large joint ([id number])
--- OUTSIDE RECORDS SUMMARY | 2025-04-23 09:37 | XMS_ITS | Data Portability ---
Author Organization [place] - [facility], Allergy Address [address] [place] [address] Care Team Providers Care Account Management Assistant Name Role Phone RAN TURNER Primary Care Provider [phone] Assessment Encounter Date Assessment Date Assessment LastModified by Organization Details LastModified Time 10/30/2024 10/30/2024 Patient had rather severely impacted cerumen bilaterally which was cleaned out today under the binocular microscope. Patient noted significant relief in the ear blockage sensation following cleaning today. Patient subsequently had audiometric testing. This showed mild high-frequency sensorineural hearing loss limited to the very high-frequency range which should have no effect on her day-to-day hearing. This is consistent with mild presbycusis. [email or web address] Not available 10/30/2024 12:33:46 Plan of Treatment Reminders Order Date Submit Date Provider Last Modified By Organization Details Last Modified Time Details Appointments None record ed. Lab None record ed. Referral None record ed. Procedures None record ed. Surgeries None record ed. Imaging None record ed. Medication Orders None record ed. Patient TargetsNo targets recorded. Patient InstructionsNo instructions recorded. Reason for Referral None Reported. Results Created Date Observation Date Name Description Value Unit Range Abnormal Flag Note LastModifiedBy Organization Detail LastModifiedTime 10/31/19 25 audio gram No observ ation record ed. BARCODE Not Available 2024 15:00:28 Result Notes None recorded. Problems Name Problem SNOMED Code Status Onset Date Resolution Date Notes Provider Name and Address Organization Details Recorded Time Impacted cerumen of bilateral ears 9135546387844 108 Active 2024 VALDEMAR STRONG MD [address] [address], [place], [address] [place] 12:01:39 Bilateral tympanoscle rosis 4429143019906 9107 Active 2024 VALDEMAR STRONG MD [address] [facility], [place], [address], [facility] - [facility] [place] 12:02:03 Mixed conductive AND sensorineur al hearing loss 97479644 Active 2024 CHAPARRO IQBAL [place], [facility] [address] [facility],[address], [place], [address], [facility] - [facility] [place] 12:25:26 Bilateral hearing loss 65120586 Active 2024 CHAPARRO IQBAL [place], [facility] [address] [facility],[address], [place], [address], [facility] - [facility] [place] 12:25:47 Orthostatic hypotension 60201728 Active 2024 VALDEMAR STRONG MD [address] [facility],[address], [place], [address], [facility] - [facility] [place] 12:32:57 Problem Notes None recorded. Procedures Surgical History Date Name Laterality Status Provider Name and Address Organization Details Recorded Time Comp Audio with Tymps - 61827 & 69621 completed CHAPARRO IQBAL [place], [facility] [address] [facility],[address], [address], [facility] [place] 10/30/2024 12:25:01 Cerumen removal with microscope bilateral completed VALDEMAR STRONG MD [address] [facility],[address], [address], [facility] [place] 10/30/2024 12:01:32 Imaging Results None recorded. Procedure Notes None recorded. Medical Equipment None Reported. Allergies No known drug allergies Medications Name Sig Start Date Stop Date Status Note LastModified by Organization Details LastModified Time cyclobenzap rine 10 mg tablet TAKE ONE TABLET BY MOUTH TWICE A DAY NEEDED FOR MUSCLE SPASMS 10/30 completed Not Available Not Available Not Available latanoprost 0.005 % eye drops PLACE 1 DROP IN EACH EYE EVERY EVENING 10/30 completed Not Available Not Available Not Available atorvastati n 20 mg tablet TAKE ONE TABLET BY MOUTH EVERY DAY active Not Available Not Available No t Available trazodone 50 mg tablet TAKE 1-3 TABLETS BY MOUTH AT BEDTIME NEEDED FOR SLEEP 10/30 completed Not Available Not Available Not Available atorvastati n 10 mg tablet TAKE ONE TABLET BY MOUTH EVERY DAY active Not Available Not Available No t Available Stool Softener 100 mg capsule TAKE ONE CAPSULE BY MOUTH TWICE A DAY 10/30 completed Not Available Not Available Not Available cefpodoxime 200 mg tablet TAKE ONE TABLET BY MOUTH EVERY 12 HOURS FOR 1 DAY 10/30 completed Not Available Not Available Not Available allopurinol 100 mg tablet TAKE THREE TABLETS BY MOUTH DAILY AT BEDTIME 10/30 completed Not Available Not Available Not Available tramadol 50 mg tablet TAKE ONE TABLET BY MOUTH EVERY 6 HOURS NEEDED FOR PAIN 10/30 completed Not Available Not Available Not Available alprazolam 0.5 mg tablet TAKE ONE TABLET BY MOUTH TWICE A DAY NEEDED active Not Available Not Available No t Available meclizine 25 mg tablet TAKE ONE TABLET BY MOUTH THREE TIMES A DAY NEEDED FOR DIZZINES 10/30 completed Not Available Not Available Not Available bupropion HCl 75 mg tablet TAKE ONE TABLET BY MOUTH EVERY MORNING active Not Available Not Available No t Available hydroxyzine HCl 25 mg tablet TAKE ONE TO TWO TABLETS BY MOUTH AT BEDTIME 10/30 completed Not Available Not Available Not Available lisinopril 5 mg tablet TAKE ONE TABLET BY MOUTH EVERY DAY active Not Available Not Available No t Available metoprolol succinate ER 25 mg tablet,exte nded release 24 hr TAKE 1 TABLET BY MOUTH EVERY DAY. active Not Available Not Available No t Available epinephrine 0.3 mg/0.3 mL injection, auto-inject or INJECT 0.3 ML 0.3 MG TOTAL) INTO THE THIGH IF NEEDED FOR ANAPHYLAX IS active Not Available Not Available No t Available zolpidem 10 mg tablet TAKE ONE TABLET BY MOUTH DAILY AT BEDTIME NEEDED 10/30 completed Not Available Not Available Not Available albuterol sulfate HFA 90 mcg/actuati on aerosol inhaler INHALE TWO PUFFS BY MOUTH EVERY 6 HOURS NEEDED FOR WHEEZING OR SHORTNESS OF BREATH active Not Available Not Available No t Available fluoxetine 20 mg capsule TAKE TWO CAPSULES BY MOUTH EVERY MORNING AND TAKE ONE CAPSULE BY MOUTH EVERY EVENING active Not Available Not Available No t Available fluticasone propionate 50 mcg/actuati on nasal spray,suspe nsion USE 2 SPRAYS IN EACH NOSTRIL DAILY 10/30 completed Not Available Not Available Not Available amoxicillin 875 mg-potassiu m clavulanate 125 mg tablet TAKE ONE TABLET BY MOUTH TWICE A DAY FOR 10 DAYS 10/30 completed Not Available Not Available Not Available oxycodone 5 mg tablet TAKE ONE TABLET BY MOUTH EVERY 4 TO 6 HOURS NEEDED FOR SEVERE PAIN 10/30 completed Not Available Not Available Not Available Eliquis 5 mg tablet TAKE ONE TABLET BY MOUTH TWICE A DAY active Not Available Not Available No t Available Vitals Date Recorded Body height Body weight Provider Name and Address Organization Details Last Updated DateTime 10/30/2024 172.72 cm 89016.63 g Arleen Sinclair [place] - [facility] 10/30/2024 11:42:19 Social History None recorded. Functional Status None recorded. Mental Status None recorded. Family History Nothing Reported. Medical History Condition Response Anxiety Y High Cholesterol Y Hypertension Y Depression Y Kidney Disease Y Gynecological HistoryNo gynecological history recorded. Obstetrics History GPAL:G 0 P 0 0 0 0 Past Encounters Encounter ID Performer Location Encounter Start Date Encounter Closed Date Diagnosis/Indication Diagnosis SNOMED-CT Code Diagnosis ICD10 Code Diagnosis IMO Codes Diagnosis Note [id number] VALDEMAR STRONG MD [facility] [address] [address] 10/30/2024 11:12:42 10/30/2024 12:58:10 Impacted cerumen of bilateral ears 7585508018 252789 H61.23 758302 Bilateral tympanosclerosis 2904958608 3090582 H74.03 [id number] Patient has tympanoscl erosis bilaterall y which is of no clinical concern. Mixed cond uctive AND sensorineural hearing loss 66561291 H90.A31 59603170 Audiologic al evaluation results:Ri ght ear:Normal hearing thru 3000Hz dropping to a mild mixed hearing loss with excellent word recognitio n.Left ear:Normal hearing thru 3000Hz dropping to a mild SNHL with excellent word recognitio n. Tympanomet ry:Right Ear:Type AsLeft Ear:Type As Bilateral hearing loss 85473100 H90.A22 73604738 Orthostati c hypotension 81327405 I95.1 3437 Patient's lightheade dness upon standing upright quickly is much more likely to be related to postural hypotensio n rather than anything going on with her ears. Reassuranc e provided in this regard. She should continue to follow-up with her cardiologi st. Health Concerns Section Related Observation LastModified by Organization Detai ls LastModified Time None Recorded Concern Status LastModified by Organization Details LastModified Time None Recorded Advance Directives Directive None Recorded Payers Insurance Date Sequence Insurance Name Policy Number Policy Larson Covered Member ID Larson Member ID Guarantor Name 10/30/2024 1 [facility] MEDICARE [place] BLUE (MEDICARE REPLACEMENT PPO) [id number] Magdalena Artis [id number] Magdalena Artis Notes Date Note Type Note Provider Name and Address Organization Details Recorded Time 10/30/2024 text/html Patient comes in today for evaluation of intermittent ear blockage sensation affecting the right ear. She finds that if she lays down particularly on the right side, the right ear will feel blocked. When she stands up, the right ear will clear. She has had no pain or discharge. 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
== END 2025-04-23 09:10 | disposition home or self-care (01) ==
LOC: HO.HOS 08:31
PROVIDERS: PCP Internal Medicine; Visit Provider Orthopaedic Surgery
DX: M17.11 Unilateral primary osteoarthritis, right knee (principal)
CPT/HCPCS: 20610; 99213

== ENCOUNTER → 2025-04-23 08:32 | Outpatient (BNV) | payer MEDICARE, SELFPAY | PROVIDERS: Visit Provider Radiology Diagnostic Ultrasound | DX: M17.11 Unilateral primary osteoarthritis, right knee (principal) | CPT/HCPCS: 73562 ==

== ENCOUNTER 2025-04-23 09:26 | Outpatient (REF) | payer MEDICARE, SELFPAY ==
--- NOTE | ~2025-04-23 | XR_ITS ---
EXAMINATION: XR KNEE, RIGHT CLINICAL INFORMATION: M25.561 - Pain in right knee COMPARISON: None available. TECHNIQUE: Three views of the right knee. FINDINGS: Alignment is anatomic. Mild medial and lateral compartment joint space narrowing. Patellofemoral compartment joint space is maintained. No visible acute fracture or dislocation. Possible small-moderate suprapatellar joint fluid. XR/XR knee RT 3V IMPRESSION: Mild medial and lateral compartment arthritis. Electronically signed by: Armond Hoyt MD 04/23/2025 03:07 PM FLORENCE LEON
--- OUTSIDE RECORDS SUMMARY | 2025-04-24 09:56 | XMS_ITS | Clinical Summary ---
Author Organization [facility] Address [address] [place] [address] Care Team Providers Care Manager Search Name Role Phone Facundo Hua MD Primary [...] (Females,Ages 65 and older) 2013 RSV Vaccine 50 years and older and Patients (1 - 1-dose 75+ series) 2023 Influenza Vaccine 01/02/2025 03/08/2021, 03/05/2018, 03/29/2017 COVID-19 Vaccine ( - 2023-2 5 season) 2025 Hepatitis B Vaccines Aged Out No long er eligible based on patient's age to complete this topic Insurance BLUE CROSS [employer] MEDICARE Care Teams Manager Search Relationship Specialty Start Date End Date Facundo Hua MD PCP - General Internal Medicine 07/18/21
--- OUTSIDE RECORDS SUMMARY | 2025-04-24 09:56 | XMS_ITS | Clinical Summary ---
Author Organization [address] [place] [address] Address [address] [place] [address] Phone Care Team Providers Care Paint Technician Name Role Phone Jordyn Smith MD Primary Care Provider [phone] Allergies Active Allergy Reactions Criticality Noted Date Comments Bee Venom Protein (Honey Bee) 2024 Medications multivitamin (Multiple Vitamins) tablet Take by [...] 6 WEEKS AFTER OPENING) 01/30/20 23 Active FLUoxetine (PROzac) 20 mg capsule TAKE TWO CAPSULES BY MOUTH EVERY MORNING AND TAKE ONE CAPSULE BY MOUTH DAILY AT BEDTIME 12/04/19 24 Active albuterol HFA (PROAIR HFA ; [...] day. Do not crush, chew, or split. 08/05/19 25 026 Active EPINEPHrine (EpiPen 2-Felix) 0.3 mg/0.3 mL injection Inject 0.3 mL (0.3 mg total) into the thigh if needed for anaphylaxis. 2 each 1 09/05/19 25 Active metoprolol succinate (TOPROL-XL) 25 mg 24 hr tablet Take 1 tablet (25 mg total) by mouth 1 (one) time each day. Do not crush or chew. 90 tablet 1 09/05/19 25 Active apixaban (Eliquis) 5 mg tablet Take 1 tablet (5 mg total) by mouth 2 (two) times a day. 180 tablet 1 09/05/19 25 Active atorvastatin (LIPITOR) 20 mg tablet TAKE ONE TABLET BY MOUTH EVERY DAY 90 tablet 1 02/17/20 25 Active lisinopriL (PRINIVIL,ZEST RIL) 10 mg tablet Take 1 tablet (10 mg total) by mouth 1 (one) time each day. Active lisinopriL (PRINIVIL,ZEST RIL) 5 mg tablet TAKE ONE TABLET BY MOUTH EVERY DAY 90 tablet 1 04/07/20 25 Active lisinopriL (PRINIVIL,ZEST RIL) 5 mg tablet Take 1 tablet (5 mg total) by mouth 1 (one) time each day. 90 tablet 1 09/05/19 25 025 Discontinued Active Problems Problem Noted Date [...] well regarding her fatigue. Atrial flutter, paroxysmal ([facility] V24, CMS/HCC V28) 07/25/2021 Overview (02/29/2024): Last Assessment & Plan: Patient has a history of paroxysmal atrial flutter. She continues on rate control therapy with beta-bette. Her heart rate is well controlled today. She continues on anticoagulation therapy with Eliquis. She has a [id number] score of 3. She denies any excessive [...] duration. Continue current therapies. Assessment & Plan (02/23/2025 12:05 PM EDT): The patient has history of paroxysmal atrial flutter, she has a [id number] score of 4 and continues on Eliquis 5 mg twice daily. She continues on metoprolol for rate control. Her ECG today showing normal sinus rhythm 68 bpm. She had a recent mechanical fall. She also does have episodes of lightheadedness upon position change. She is interested in coming off of anticoagulation, she will be evaluated by EP for the consideration of Watchman procedure. She is interested to learn more about this with them. In the meantime she will continue on Eliquis. Orders: ECG 12 lead Transthoracic echocardiogram (TTE) complete with PRN contrast, bubble, strain, and 3D order panel; Future perflutren lipid microsphere (DEFINITY) 1.3 mL in sodium chloride 0.9% 8.7 mL injection Assessment & Plan (08/11/2024 8:48 AM EDT): The patient has a history of paroxysmal atrial flutter. She is on rate control therapy with metoprolol. The patient refers infrequent episodes of palpitations and only last for a few seconds per episode. She denies any prolonged episodes of palpitations. as such, we will continue her current rate control therapy with metoprolol. The patient has a [id number] score of 4 (age, gender, hypertension). She [...] with routine medical care. Assessment & Plan (02/23/2025 12:05 PM EDT): Continue on statin. Assessment & Plan (08/11/2024 8:48 AM EDT): [...] blood pressures at home. Assessment & Plan (02/23/2025 12:05 PM EDT): Blood pressure is well-controlled today. Orthostatic blood pressures were checked due to lightheadedness upon position change; no orthostasis was noted. I advised that she follow-up with her PCP regarding further workup for lightheadedness. I also advised that she could trial cutting lisinopril to 5 mg daily to see if it made a difference into monitor her blood pressure at home. Assessment & Plan (08/11/2024 8:48 [...] Encounters Date Type Department Care Team Description 02/25/2025 Telephone [facility] Cardiology [facility] [address] [place] [address] Ninfa Vaz NP 02/23/2025 10:40 AM EDT Office Visit [facility] [address] [place] [address] Ninfa Vaz NP Atrial flutter, paroxysmal (CMS/HCC V24, CMS/HCC V28) (Primary Dx); Benign essential hypertension; Other hyperlipidemia; Lightheadedness; Ascending aorta dilation (CMS/HCC V24) 02/04/2025 9:30 AM EDT [facility] [address] [address] Jordyn Smith MD Urinary tract infection without hematuria, site unspecified (Primary Dx); Anxiety; Atrial flutter, paroxysmal (CMS/HCC V24, CMS/HCC V28); Other hyperlipidemia; Depression, unspecified depression type; Hyperglycemia from Last 3 Months Immunizations Immunization Administration Dates Next Due Influenza trivalent, 0.5mL ( Fluzone High-dose) 65yo and older 03/18/2022,03/08/2021,03/24/2020,03/05 Influenza trivalent, with pr eservative (Fluzone; Afluria) 6mo and older 02/07/2023,03/29/2017 Pneumococcal conjugate 13 va lent (Prevnar 13, PCV13) 2mo and older 10/30/2017 Pneumococcal polysaccharide 23 valent (Pneumovax 23) 2yo and older 10/17/2022 RSV, bivalent, protein subun it RSVpreF, 0.5mL, Preservative Free (Arexvy) 50yo and older 02/07/2023 Td Tetanus diptheria (Tdvax) 7yo and older 06/10/2019 Tdap Tetanus diptheria acell ular pertussis (Boostrix; Adacel) 7yo and older 06/27/2007 Surgical History Surgery Date Site/Laterality Comments COLONOSCOPY 08/19/2009 PROCEDURE: KS COLONOSCOPY FLX DX W/COLLJ SPEC WHEN PFRMD; COMMENT: diverticulosis ESOPHAGOGASTRODUODENOSCOPY 06/04/2013 PROCEDURE: KS ESOPHAGOGASTRODUODENOSCOPY TRANSORAL DIAGNOSTIC; COMMENT: normal COLONOSCOPY 05/17/2022 [...] Sign Reading Time Taken Comments Blood Pressure 122/86 02/23/2025 10:55 AM EDT Pulse 72 02/23/2025 10:55 AM EDT Temperature 36.7 C (98 F) 02/04/2025 9:18 AM EDT Respiratory Rate 16 02/04/2025 9:18 AM EDT Oxygen Saturation 99% 02/23/2025 10:55 AM EDT Inhaled Oxygen Concentration - - Weight 82.1 kg (181 lb) 02/23/2025 10:55 AM EDT Height 172.7 cm (5' 8 ) 02/23/2025 10:55 AM EDT Body Mass Index 27.52 02/23/2025 10:55 AM EDT Plan of Treatment Upcoming Encounters Date Type Department Care Team (Late st Contact Info) Description 05/06/2025 9:30 AM EST Ancillary Procedure [facility] Cardiology [facility] [address] [place] [phone] 05/12/2025 11:05 AM EST Consult [facility] Cardiology [facility] [address] [place] [address] Shanon Rush MD [address] [place] [address] [address] [place] [address] 05/14/2025 2:45 PM EST Office Visit Adult [facility] [address] [place] [phone] Jordyn Smith MD [address] [place] [address] 08/24/2025 10:40 AM EDT Office Visit [facility] Cardiology [facility] [address] [place] [phone] Andie Orozco NP [address] [place] [address] [address] [place] [phone] 10/21/2025 11:00 AM EDT Office Visit Pulmonology - [address] [place] [address] Crystal Steiner MD [address] [place] [phone] Health Maintenance Due Date Last Done Comments Zoster Vaccines (1 of 2) 1969 Hepatitis C Screening 05/13/2022 Medicare Annual Wellness Visit 05/13/2022 Social Influencers of Health Screening 05/13/2022 Falls Risk Assessment 04/04/2024 04/04/2023 Depression Screening 06/04/2024 04/04/2023 COVID-19 Vaccine ( season) 2025 03/10/2024, 08/03/2022, 12/29/2021, Additional history [...] Procedure Name Priority Date/Time Associated Diagnosis Comments ECG 12-LEAD Routine 02/23/2025 12:03 PM EDT Atrial flutter, paroxysmal (CMS/HCC V24, CMS/HCC V28) ALEXANDRE URINE CULTURE TUBE Routine 01/30/2025 9:22 AM EDT Stage 3 chronic kidney disease, unspecified whether stage 3a or 3b CKD (CMS/HCC V24, CMS/HCC V28) Dysuria Urinary frequency Prediabetes URINALYSIS WITH REFLEX MICROSCOPIC AND CULTURE Routine 01/30/2025 8:11 AM EDT Stage 3 chronic kidney disease, unspecified whether stage 3a or 3b CKD (CMS/HCC V24, CMS/HCC V28) Dysuria Urinary frequency Prediabetes URINALYSIS WITH REFLEX MICROSCOPIC AND CULTURE Routine 01/30/2025 8:11 AM EDT Stage 3 chronic kidney disease, unspecified whether stage 3a or 3b CKD (CMS/HCC V24, CMS/HCC V28) Dysuria Urinary frequency Prediabetes CULTURE URINE Routine 01/30/2025 8:11 AM EDT Stage 3 chronic kidney disease, unspecified whether stage 3a or 3b CKD (CMS/HCC V24, CMS/HCC V28) Dysuria Urinary frequency Prediabetes COMPREHENSIVE METABOLIC PANEL Routine 09/01/2024 8:25 AM EDT Prediabetes Dizziness LIPID PANEL WITH REFLEX TO DIRECT LDL Routine 09/01/2024 8:25 AM EDT Other hyperlipidemia HM DEPRESSION SCREENING Routine 04/04/2023 HM FALLS RISK ASSESSMENT Routine 04/04/2023 DXA BONE DENSITY STUDY 1+ SITS AXIAL SKEL Routine 03/01/2023 11:33 AM EDT Other specified personal risk factors, not elsewhere classified SCREENING MAMMOGRAPHY BI 2-VIEW BREAST INC CAD Routine 12/11/2022 9:26 AM EDT Encounter for screening mammogram for malignant neoplasm of breast from Last 3 Months or Most Recently Relevant to Health Maintenance Results * ECG 12 lead (02/23/2025 12:03 PM EDT) Ventricular Rate ECG 68 BPM GEMUSE Atrial Rate 68 BPM GEMUSE P-R Interval 180 ms GEMUSE QRS Duration 82 ms GEMUSE Q-T Interval 412 ms GEMUSE QTc 438 ms GEMUSE P Wave [place] 55 degrees GEMUSE R [place] 50 degrees GEMUSE T [place] 52 degrees GEMUSE ECG Interpretation Normal sinus rhythm Normal ECG When compared with ECG of 27-DEC-2023 13:39, No significant changes are noted Confirmed by MD JAGDISH, FRANCHESKA ([id number]) on 02/26/2025 3:24:09 PM GEMUSE 02/23/2025 11:0 0 AM EDT 02/26/2025 3:24 PM EDT us Ninfa Vaz SENIOR ANALYST PROGRAMMER ECG ORDERABLES Edited Result - Final GEMUSE * Alexandre urine culture tube (01/30/2025 9:22 AM EDT) Extra Tube Hold for add-ons. 01/30/2025 11:[address] [facility] Comment:Auto resulted. Urine Urine specimen obtained by clean catch procedure / Unknown Non-blood Collection / Unknown 01/30/2025 9:22 AM EDT 01/30/2025 9:22 AM EDT us Darlene TOBIN LAB URINE ORDERABLES Fin al Result [facility] [address] [place] [address], * (ABNORMAL) Urinalysis with reflex microscopic and culture (01/30/2025 8:11 AM EDT) Specific [place] Urine 1.020 1.003 - 1.030 LAB URINALYSIS - AUTOMATED METHOD 01/30/2025 11:28 AM [facility] pH, Urine 6.0 5.0 - 8.0 pH LAB URINALYSIS - AUTOMATED METHOD 01/30/2025 11:28 AM [facility] Leukocytes, Urine Moderate(A) Negative LAB URINALYSIS - AUTOMATED METHOD 01/30/2025 11:28 AM [facility] Nitrite, Urine Positive(A) Negative LAB URINALYSIS - AUTOMATED METHOD 01/30/2025 11:28 AM [facility] Protein, Urine Trace <=Trace mg/dL LAB URINALYSIS - AUTOMATED METHOD 01/30/2025 11:28 AM [facility] Glucose, Urine Negative Negative mg/dL LAB URINALYSIS - AUTOMATED METHOD 01/30/2025 11:28 AM [facility] Ketones, Urine Negative Negative mg/dL LAB URINALYSIS - AUTOMATED METHOD 01/30/2025 11:28 AM [facility] Urobilinogen , Urine 0.2 0.2 - 1.0 mg/dL LAB URINALYSIS - AUTOMATED METHOD 01/30/2025 11:28 AM [facility] Bilirubin, Urine Negative Negative LAB URINALYSIS - AUTOMATED METHOD 01/30/2025 11:28 AM [facility] Blood, Urine Moderate(A) Negative LAB URINALYSIS - AUTOMATED METHOD 01/30/2025 11:28 AM [facility] RBC, Urine 4 0 - 4 /HPF 01/30/2025 11:[address] [facility] WBC, Urine >100(H) 0 - 4 /HPF 01/30/2025 11:[address] [facility] Squamous Epithelial, Urine >100(H) 0 - 60 /LPF 01/30/2025 11:[address] [facility] Non-Squamous Epithelial, Urine 10-20 TRANSITIONAL /LPF 01/30/2025 11:[address] [facility] Bacteria, Urine Many(A) Negative /HPF 01/30/2025 11:[address] [facility] Hyaline Casts, Urine 5.9(H) 0 - 3 /LPF 01/30/2025 11:[address] [facility] Urine Urine specimen obtained by clean catch procedure / Unknown Non-blood Collection / Unknown 01/30/2025 8:11 AM EDT 01/30/2025 8:11 AM EDT Darlene TOBIN LAB URINE ORDERABLES Fin al Result [facility] [address] [place] [address], * (ABNORMAL) Culture urine (01/30/2025 8:11 AM EDT) Culture, Urine >=100,000 CFU/mL Escherichia coli(A) MALINDA 02/01/2025 11:[address] [facility] Comment: The organism value for [...] MICROBIOLOGY - GENER AL ORDERABLES Final Result [facility] [address] [place] [address], * Lipid panel with reflex to direct LDL (09/01/2024 8:25 AM EDT) Cholesterol 190 0 - 200 mg/dL LAB CHEMISTRY METHOD 09/01/2024 10:[address] [facility] Triglycerides 70 0 - 150 mg/dL LAB CHEMISTRY METHOD 09/01/2024 10:[address] [facility] HDL 79 >=40 mg/dL LAB CHEMISTRY METHOD 09/01/2024 10:[address] [facility] LDL Calculated 97 0 - 100 mg/dL LAB CHEMISTRY METHOD 09/01/2024 10:[address] [facility] VLDL Cholesterol Mauro 14 mg/dL LAB CHEMISTRY METHOD 09/01/2024 10:[address] [facility] Non HDL Chol. (LDL+VLDL) 111 <145 mg/dL LAB CHEMISTRY METHOD 09/01/2024 10:[address] [facility] Chol/HDL Ratio 2.4 0.0 - 4.4 LAB CHEMISTRY METHOD 09/01/2024 10:39 AM [facility] Blood Venous blood specimen / Unknown Venipuncture / Unknown 09/01/2024 8:25 AM EDT 09/01/2024 8:25 AM EDT us Facundo Hua MD LAB BLOOD ORDERABLES F inal Result [facility] [address] [place] [address], [place] [phone] * (ABNORMAL) Comprehensive metabolic panel (09/01/2024 8:25 AM EDT) Sodium 141 133 - 145 mmol/L LAB CHEMISTRY METHOD 09/01/2024 10:39 AM [facility] Potassium 4.6 3.5 - 5.5 mmol/L LAB CHEMISTRY METHOD 09/01/2024 10:39 AM [facility] Chloride 109 96 - 110 mmol/L LAB CHEMISTRY METHOD 09/01/2024 10:39 AM [facility] CO2 25 21 - 32 mmol/L LAB CHEMISTRY METHOD 09/01/2024 10:39 AM [facility] Anion Gap 7 3 - 11 LAB CHEMISTRY METHOD 09/01/2024 10:39 AM [facility] Glucose 106(H) 70 - 100 mg/dL LAB CHEMISTRY METHOD 09/01/2024 10:39 AM [facility] BUN 21 5 - 25 mg/dL LAB CHEMISTRY METHOD 09/01/2024 10:39 AM [facility] Creatinine 1.05 0.50 - 1.10 mg/dL LAB CHEMISTRY METHOD 09/01/2024 10:39 AM [facility] eGFR 55(L) >=60 mL/min/1. 73m2 LAB CHEMISTRY METHOD 09/01/2024 10:39 AM [facility] Comment:Calculation based on the Chronic Kidney Disease Epidemiology Collaboration (CKD-EPI) equation refit without adjustment for race. BUN/Creatinine Ratio 20.0 LAB CHEMISTRY METHOD 09/01/2024 10:39 AM [facility] Calcium 9.4 8.5 - 10.5 mg/dL LAB CHEMISTRY METHOD 09/01/2024 10:39 AM [facility] AST (SGOT) 25 10 - 42 unit/L LAB CHEMISTRY METHOD 09/01/2024 10:39 AM [facility] ALT (SGPT) 32 10 - 60 unit/L LAB CHEMISTRY METHOD 09/01/2024 10:39 AM [facility] Alkaline Phosphatase 92 42 - 121 unit/L LAB CHEMISTRY METHOD 09/01/2024 10:39 AM [facility] Total Protein 7.3 6.0 - 8.0 g/dL LAB CHEMISTRY METHOD 09/01/2024 10:39 AM [facility] Albumin 3.9 3.2 - 5.0 g/dL LAB CHEMISTRY METHOD 09/01/2024 10:39 AM [facility] Total Bilirubin 0.6 0.0 - 1.4 mg/dL LAB CHEMISTRY METHOD 09/01/2024 10:39 AM [facility] Blood Venous blood specimen / Unknown Venipuncture / Unknown 09/01/2024 8:25 AM EDT 09/01/2024 8:25 AM EDT us Jordyn Smith MD LAB BLOOD ORDERABLES Final Resul t [facility] [address] [place] [address], [place] [phone] * Falls Risk Assessment (04/04/2023) Falls Risk Assessment abstracted us Historical Provider MD HEALTH MAINTENANCE Final Result * Depression Screening (04/04/2023) Depression Screening abstracted us Historical Provider MD HEALTH MAINTENANCE Final Result * DXA BONE [...] Based on the World Health Organization criteria, Haritha Hendrix should be classified as having normal bone density. [facility] Department of Internal Medicine recommends using [...] Based on the World Health Organization criteria, Haritha Hendrix should beclassified as having normal bone density. [facility] Department of Internal Medicine recommendsusing National [...] CROSS - [place] MEDICARE ADVANTAGE Care Teams Paint Technician Relationship Specialty Start Date End Date Jordyn Smith MD [address] [place] [address] PCP - General 11/01/06
--- OUTSIDE RECORDS SUMMARY | 2025-04-24 09:56 | XMS_ITS | Clinical Summary ---
Author Organization [facility] Address [address] [place] [address] Care Team Providers Care Geropsychologist Name Role Phone Jordyn Smith MD Primary Care Provider [phone] Social History Tobacco Use Types Packs/Day Years [...] age to complete this topic Care Teams Geropsychologist Relationship Specialty Start Date End Date Jordyn Smith MD PCP - General Internal Medicine 04/26/20
== END 2025-04-23 09:27 | disposition home or self-care (01) ==
LOC: HO.HOSX 09:26
PROVIDERS: Visit Provider Orthopaedic Surgery
DX: M17.11 Unilateral primary osteoarthritis, right knee (principal)
CPT/HCPCS: 20610; 73562; 99212; J1010; J2003